=== PATIENT | male | born 1985 | race Caucasian/White ===

== ENCOUNTER 2016-11-18 13:20 | Inpatient (IN) | payer OTHER ==
--- NOTE | 2016-11-18 13:49 | PDOC ---
History of Present Illness - General History Source: Patient Exam Limitations: No Limitations - History of Present Illness Initial Comments: 11/18/16 13:46 This is a 31 yo M presenting to the ER from his PMD's office Pt states that he has noted right lower extremity swelling for the past week He has noted erythema the past week No fevers no chills Trauma to the right leg from excoriated skin No drainage No recent travel PMH: no known PSH: denies Meds: denies All: NKDA PMH: Dr Todd, [facility] GENERAL/CONSTITUTIONAL: No: fever, chills, weakness, loss of appetite. HEAD, EYES, EARS, NOSE AND THROAT: No: change in vision, ear pain, discharge, sore throat, throat swelling. CARDIOVASCULAR: No: chest pain, lightheadedness, palpitations, syncope RESPIRATORY: No: cough, shortness of breath, wheezing, hemoptysis, stridor. GASTROINTESTINAL: No: nausea, vomiting, diarrhea, abdominal cramping, rectal bleeding, constipation. GENITOURINARY: No: dysuria, hematuria, frequency, urgency, flank pain. MUSCULOSKELETAL: No: back pain, neck pain, joint pain, muscle swelling or pain SKIN: Yes: right lower extremity edema and erythema No: lesions, pallor, rash or easy bruising. NEUROLOGIC: No: headache, vertigo, paresthesias, weakness ENDOCRINE: No: unexplained weight gain or loss HEMATOLOGIC/LYMPHATIC: No: anemia, easy bleeding, swelling nodes. GENERAL: The patient is in no acute distress, obese. HEAD: Normal with no signs of trauma. EYES: PERRLA, EOMI, sclera anicteric, conjunctiva clear. ENT: Ears normal, nares patent, oropharynx clear without exudates. Moist mucous membranes. NECK: Normal range of motion, supple without lymphadenopathy, JVD, or masses. LUNGS: Breath sounds equal, clear to auscultation bilaterally. No wheezes, and no crackles. HEART:Regular rate and rhythm, normal S1 and S2 without murmur, rub or gallop. ABDOMEN: Soft, nontender, normoactive bowel sounds. No guarding, no rebound. No masses palpable. EXTREMITIES: (+) swelling RLE NEUROLOGICAL: Cranial nerves II through XII grossly intact. Normal speech. No focal neurological deficits. MUSCULOSKELETAL: Back non-tender to palpation, no CVA tenderness SKIN: (+) Diffuse RLE circumfrential erythema, multiple lower extremity lesions , 11/18/16 14:02 11/18/16 14:08 <Funmilayo Chan - Last Filed: 11/18/16 17:02> <Alfredito Lopez - Last Filed: 11/18/16 17:12> - General Chief Complaint: Edema Stated Complaint: RT LEG SWELLING, REDNESS Time Seen by Provider: 11/18/16 13:33 Past History - Psycho/Social/Smoking Cessation Hx Anxiety: No Suicidal Ideation: No Smoking History: Former smoker Have you smoked in the past 12 months: Yes Information on smoking cessation initiated: No 'Breaking Loose' booklet given: 11/18/16 Hx Alcohol Use: Yes (occasional) <Funmilayo Chan - Last Filed: 11/18/16 17:02> <Alfredito Lopez - Last Filed: 11/18/16 17:12> - Past Medical History Allergies/Adverse Reactions: Allergies Allergy/AdvReac Type Severity Reaction Status Date / Time No Known Drug Allergies Allergy Verified 11/18/16 13:25 pollen extracts Allergy Verified 11/18/16 13:25 Home Medications: Ambulatory Orders Loratadine [Claritin] 10 mg PO ASDIR PRN 11/18/16 *Physical Exam - Vital Signs Last Vital Signs Temp Pulse Resp BP Pulse Ox 97.9 F 85 18 146/88 98 11/18/16 13:20 11/18/16 13:20 11/18/16 13:20 11/18/16 13:20 11/18/16 13:20 <Funmilayo Chan - Last Filed: 11/18/16 17:02> - Vital Signs Last Vital Signs Temp Pulse Resp BP Pulse Ox 97.9 F 85 18 146/88 98 11/18/16 13:20 11/18/16 13:20 11/18/16 13:20 11/18/16 13:20 11/18/16 13:20 <Alfredito Lopez - Last Filed: 11/18/16 17:12> ED Treatment Course - LABORATORY CBC & Chemistry Diagram: 11/18/16 14:00 11/18/16 14:00 <Funmilayo Chan - Last Filed: 11/18/16 17:02> - LABORATORY CBC & Chemistry Diagram: 11/18/16 14:00 11/18/16 14:00 - ADDITIONAL ORDERS Additional order review: 11/18/16 14:00 RBC 4.65 MCV 84.4 MCHC 32.3 RDW 13.1 MPV 8.5 Neutrophils % 65.0 Lymphocytes % 21.3 Monocytes % 9.7 Eosinophils % 2.2 Basophils % 1.8 - RADIOLOGY Radiograph Interpretation: 11/18/16 15:00 US Duplex Impression: There is no evidence of deep venous thromboses in the right lower extremity. Elongated/enlarged lymph node in the right groin measuring 5.3 x 1.2 cm. Please correlate clinically for further evaluation. Reviewed and interpreted by by radiologist, Dr. Andrey Andino MD. X-ray Foot Impression: Extensive soft tissue swelling with no fracture or subcutaneous emphysema. Reviewed and interpreted by radiologist Dr. Arthur Payne MD. <Alfredito Lopez - Last Filed: 11/18/16 17:12> Medical Decision Making - Medical Decision Making 11/18/16 14:13 Will do labs Will do blood cultures Will do duplex - r/o DVT Will do x rays Will give IV abx Will place on observation 11/18/16 15:15 11/18/16 15:16 Laboratory Tests 11/18/16 11/18/16 14:00 14:00 WBC 9.3 Hgb 12.7 Hct 39.3 Plt Count 437 H Neutrophils % 65.0 Lymphocytes % 21.3 BUN 12 Creatinine 1.0 Random Glucose 90 Duplex negative for DVT Will admit to hospitalist Will give Vancomycin and Ceftriaxone Clinical Impression: Cellulitis, lymphangitis <Funmilayo Chan - Last Filed: 11/18/16 17:02> - Medical Decision Making 11/18/16 14:55 Hospitalist microblogged. 11/18/16 14:55 Hospitalist call to ER. Case discussed. Agreed to admit patient to observation. <Alfredito Lopez - Last Filed: 11/18/16 17:12> *DC/Admit/Observation/Transfer - Discharge Dispostion Admit: Yes <Funmilayo Chan - Last Filed: 11/18/16 17:02> - Attestations Scribe Attestion: 11/18/16 15:31 Documentation prepared by Alfredito Lopez, acting as biomedical manager for Funmilayo Chan MD. <Alfredito Lopez - Last Filed: 11/18/16 17:12> Diagnosis at time of Disposition: Cellulitis of leg Qualifiers: Laterality: right Qualified Code(s): L03.115 - Cellulitis of right lower limb - Discharge Dispostion Condition at time of disposition: Stable
[2016-11-18 14:18] LABS: BASOPHIL 1.8 % (0-2.0); EOSINOPHIL 2.2 % (0-4.5); MCH 27.2 pg (25.7-33.7); MCHC 32.3 g/dl (32.0-35.9); MEAN CELL VOLUME 84.4 fl (80-96); MEAN PLT VOLUME 8.5 fl (7.5-11.1); PLATELET COUNT 437 K/MM3 (134-434); RDW 13.1 % (11.9-15.9); WHITE BLOOD COUNT 9.3 K/mm3 (4.0-10.0)
[2016-11-18] MEDS ORDERED: VANCOMYCIN 1,500 MG in DEXTROSE 5%-WATER - 500 ML IVPB ONE (14:54)
[2016-11-18 15:05] LABS: ALBUMIN 2.7 g/dl (3.5-5.0); ALK PHOS 56 U/L (32-92); ANION GAP 9 (8-16); CALCIUM 8.5 mg/dl (8.4-10.2); CO2 22 mmol/L (22-28); GLUCOSE,RANDOM 90 mg/dl (74-106); SGOT/AST 22 U/L (10-42); SGPT/ALT 33 U/L (10-40); TOT PROT 6.9 g/dl (6.4-8.3)
[2016-11-18] MEDS ORDERED: CEFTRIAXONE 1 GM in DEXTROSE 5%-WATER - 50 ML IVPB ONE (15:08)
[2016-11-18] MEDS ORDERED: VANCOMYCIN 1,000 MG VIAL (RESTRICTED TO ID ONLY) ONE (15:12)
[2016-11-18] MEDS ORDERED: cefTRIAXone SODIUM 1 GM VIAL ONE (15:12)
[2016-11-18 15:15] LABS: BILIRUBIN,TOTAL 0.4 mg/dl (0.2-1.0)
[2016-11-18 18:44] VITALS: BMI 40.1
--- NOTE | 2016-11-18 20:04 | HP ---
CHIEF COMPLAINT: Swelling, Redness to RLE PCP: HISTORY OF PRESENT ILLNESS: This is a 31 y/o male with no significant past medical history. Who presents to the emergency department sent in from his PCP for swelling, redness and dried lesions to his RLE x 3-7 days. Patient reports over the last week noting swelling and redness to his right ankle which spread up to his right inner thigh. He reports treating his leg with neosporin and hydrocortisone OTC without relief. Patient reports occasional scratches from his dog, but denies any dog bite or insect bites. Patient denies fever, chills, cough, CP, AP, N/V/D , constipation, dysuria. Patient does not recall last Tetanus Vaccine ER course was notable for: (1) Dupplex RLE- neg DVT (2) Xray right foot- extensive soft tissue swelling. No fx, no subcutaneous emphysema (3) Recent Travel: None PAST MEDICAL HISTORY: None PAST SURGICAL HISTORY: Ear surgery as a child Social History: Smoking: None Alcohol: None Drugs: None Family History: Denies Allergies No Known Drug Allergies Allergy (Verified 11/18/16 13:25) pollen extracts Allergy (Verified 11/18/16 13:25) HOME MEDICATIONS: Home Medications Medication Instructions Recorded Loratadine [Claritin] 10 mg PO ASDIR PRN 11/18/16 REVIEW OF SYSTEMS CONSTITUTIONAL: Absent: fever, chills, diaphoresis, generalized weakness, malaise, loss of appetite, weight change HEENT: Absent: rhinorrhea, nasal congestion, throat pain, throat swelling, difficulty swallowing, mouth swelling, ear pain, eye pain, visual changes CARDIOVASCULAR: peripheral edema Absent: chest pain, syncope, palpitations, irregular heart rate, lightheadedness RESPIRATORY: Absent: cough, shortness of breath, dyspnea with exertion, orthopnea, wheezing, stridor, hemoptysis GASTROINTESTINAL: Absent: abdominal pain, abdominal distension, nausea, vomiting, diarrhea, constipation, melena, hematochezia GENITOURINARY: Absent: dysuria, frequency, urgency, hesitancy, hematuria, flank pain, genital pain MUSCULOSKELETAL: Absent: myalgia, arthralgia, joint swelling, back pain, neck pain SKIN: redness, scaly blister-like lesions to RLE Absent: rash, itching, pallor HEMATOLOGIC/IMMUNOLOGIC: Absent: easy bleeding, easy bruising, lymphadenopathy, frequent infections ENDOCRINE: Absent: unexplained weight gain, unexplained weight loss, heat intolerance, cold intolerance NEUROLOGIC: Absent: headache, focal weakness or paresthesias, dizziness, unsteady gait, seizure, mental status changes, bladder or bowel incontinence PSYCHIATRIC: Absent: anxiety, depression, suicidal or homicidal ideation, hallucinations. PHYSICAL EXAMINATION Vital Signs - 24 hr 11/18/16 18:35 Temperature 97.9 F Pulse Rate 84 Respiratory 18 Rate Blood Pressure 144/86 GENERAL:Obese, Awake, alert, and fully oriented, in no acute distress. HEAD: Normal with no signs of trauma. EYES: Pupils equal, round and reactive to light, extraocular movements intact, sclera anicteric, conjunctiva clear. No lid lag. EARS, NOSE, THROAT: Ears normal, nares patent, oropharynx clear without exudates. Moist mucous membranes. NECK: Normal range of motion, supple without lymphadenopathy, JVD, or masses. LUNGS: Breath sounds equal, clear to auscultation bilaterally. No wheezes, and no crackles. No accessory muscle use. HEART: Regular rate and rhythm, normal S1 and S2 without murmur, rub or gallop. ABDOMEN: Soft, obese, nontender, not distended, normoactive bowel sounds, no guarding, no rebound, no masses. No hepatomegaly or splenomegaly. MUSCULOSKELETAL: Normal range of motion at all joints. No bony deformities or tenderness. No CVA tenderness. UPPER EXTREMITIES: 2+ pulses, warm, well-perfused. No cyanosis. No clubbing. Cap refill <2 seconds. No peripheral edema. LOWER EXTREMITIES: 2+ pulses, warm, well-perfused. No calf tenderness. +2 right pitting peripheral edema. NEUROLOGICAL: Cranial nerves II-XII intact. Normal speech. Gait not observed. PSYCHIATRIC: Cooperative. Good eye contact. Appropriate mood and affect. SKIN: Warm, dry, normal turgor, no rashes. +erythematous, flaky- scabbed lesions to RLE noted. Laboratory Results - last 24 hr 11/18/16 11/18/16 14:00 14:00 WBC 9.3 RBC 4.65 Hgb 12.7 Hct 39.3 MCV 84.4 MCHC 32.3 RDW 13.1 Plt Count 437 H MPV 8.5 Neutrophils % 65.0 Lymphocytes % 21.3 Monocytes % 9.7 Eosinophils % 2.2 Basophils % 1.8 Sodium 133 L Potassium 4.1 Chloride 102 Carbon Dioxide 22 Anion Gap 9 BUN 12 Creatinine 1.0 Creat Clearance w eGFR > 60 Random Glucose 90 Calcium 8.5 Total Bilirubin 0.4 AST 22 ALT 33 Alkaline Phosphatase 56 Total Protein 6.9 Albumin 2.7 L RADIOLOGY Radiograph Interpretation: 11/18/16 15:00 US Duplex Impression: There is no evidence of deep venous thromboses in the right lower extremity. Elongated/enlarged lymph node in the right groin measuring 5.3 x 1.2 cm. Please correlate clinically for further evaluation. Reviewed and interpreted by by radiologist, Dr. Andrey Andino MD. X-ray Foot Impression: Extensive soft tissue swelling with no fracture or subcutaneous emphysema. Reviewed and interpreted by radiologist Dr. Arthur Payne MD. ASSESSMENT/PLAN: This is a 31 y/o male with no past medical history. Who presents to the ED with increased redness, swelling and multiple lesions to RLE. Placed on observation for Cellulitis of the right lower leg for further evaluation of their emergent condition. Plan: 1. Cellulitis of Right Leg - unknown etiology - Dupplex RLE- neg DVT - Blood Cultures-pending - Given Ceftriaxone, Vancomycin in ED - Will continue Ceftriaxone, Vancomcyin for MRSA coverage - Appreciate ID Consult - Repeat CBC in am - Tylenol prn 2. FEN - PO Fluids - Replete lytes prn - Regular Diet 3. DVT Prophylaxis - OOB - Consider Heparin if LOS > 48 hrs Code Status: Patient is a Full Code Visit type - Emergency Visit Emergency Visit: Yes ED Registration Date: 11/18/16 Care time: The patient presented to the Emergency Department on the above date and was hospitalized for further evaluation of their emergent condition. - New Patient This patient is new to me today: Yes Date on this admission: 11/18/16 - Critical Care Critical Care patient: No
[2016-11-18] MEDS ORDERED: ACETAMINOPHEN 325 MG TABLET (FP) PO PRN (20:14)
[2016-11-19 08:17] LABS: BASOPHIL 0.4 % (0-2.0); EOSINOPHIL 3.2 % (0-4.5); MCH 27.7 pg (25.7-33.7); MCHC 33.2 g/dl (32.0-35.9); MEAN CELL VOLUME 83.4 fl (80-96); MEAN PLT VOLUME 8.7 fl (7.5-11.1); NEUTROPHILS 64.4 % (42.8-82.8); PLATELET COUNT 393 K/MM3 (134-434); RDW 13.2 % (11.9-15.9); WHITE BLOOD COUNT 7.6 K/mm3 (4.0-10.0)
[2016-11-19 08:27] LABS: CALCIUM 8.6 mg/dl (8.4-10.2); CREATININE 0.8 mg/dl (0.6-1.3)
[2016-11-19] MEDS ORDERED: CEFTRIAXONE 1 GM in DEXTROSE 5%-WATER - 100 ML IVPB SCH (10:00)
[2016-11-19] MEDS ORDERED: VANCOMYCIN 1 GRAM (PRE-DOCKED) 250 ML IVPB ONE (10:00)
[2016-11-19] MEDS: cefTRIAXone 1 GM/50 ML BAG (PRE-DOCKED) IVPB SCH (10:22)
--- NOTE | 2016-11-19 10:24 | PN ---
Physical Exam: SUBJECTIVE: Patient seen and examined. Pt with no acute complaints on exam. Reports some pain in his ankle with ambulation but otherwise feels that his leg is improving. Believes the redness is lessened. OBJECTIVE: Vital Signs - 24 hr 3 11/18/16 11/18/16 11/18/16 13:20 18:35 20:00 Temperature 97.9 F 97.9 F 98.1 F Pulse Rate 85 84 72 Respiratory 18 18 20 Rate Blood Pressure 146/88 144/86 156/74 O2 Sat by Pulse 98 Oximetry (%) 3 11/18/16 11/19/16 20:34 05:00 Temperature 98.4 F Pulse Rate 72 Respiratory 18 18 Rate Blood Pressure 168/54 O2 Sat by Pulse Oximetry (%) GENERAL: The patient is awake, alert, and fully oriented, in no acute distress. HEAD: Normal with no signs of trauma. EYES: PERRL, extraocular movements intact, sclera anicteric, conjunctiva clear. No ptosis. ENT: Ears normal, nares patent, oropharynx clear without exudates, moist mucous membranes. NECK: Trachea midline, full range of motion, supple. LUNGS: Breath sounds equal, clear to auscultation bilaterally, no wheezes, no crackles, no accessory muscle use. HEART: Regular rate and rhythm, S1, S2 without murmur, rub or gallop. ABDOMEN: Soft, nontender, nondistended, normoactive bowel sounds, no guarding, no rebound, no hepatosplenomegaly, no masses. EXTREMITIES: 2+ pulses, warm, well-perfused, no edema LLE. RLE: + erythema from just above knee to foot. appears to be receding from drawn pen line proximally. + excoriations and open blisters to anterior jean baptiste. No purulent discharge NEUROLOGICAL: Cranial nerves II through XII grossly intact. Normal speech, gait not observed. PSYCH: Normal mood, normal affect. SKIN: Warm, dry, normal turgor, no rashes or lesions noted Laboratory Results - last 24 hr 3 11/19/16 11/19/16 08:00 08:00 WBC 7.6 RBC 4.71 Hgb 13.1 Hct 39.3 MCV 83.4 MCHC 33.2 RDW 13.2 Plt Count 393 MPV 8.7 Neutrophils % 64.4 Lymphocytes % 22.4 Monocytes % 9.6 Eosinophils % 3.2 Basophils % 0.4 Sodium 137 Potassium 4.5 Chloride 106 Carbon Dioxide 24 Anion Gap 7 L BUN 11 Creatinine 0.8 Random Glucose 100 Calcium 8.6 Active Medications 3 Generic Name Dose Route Start Last Admin Trade Name Freq PRN Reason Stop Dose Admin Acetaminophen 650 mg 11/18/16 20:14 Tylenol - PO Q6H PRN FEVER OR PAIN Ceftriaxone Sodium 1 gm 11/19/16 10:00 11/19/16 10:22 Rocephin 1gm Ivpb (Pre-Docked) IVPB 1 gm DAILY TATE Administration Vancomycin HCl 250 mls @ 250 mls/hr 11/19/16 22:00 Vancomycin (Pre-Docked) IVPB BID TATE Protocol Vancomycin HCl 250 mls @ 250 mls/hr 11/19/16 10:00 11/19/16 10:22 Vancomycin (Pre-Docked) IVPB 11/19/16 10:59 250 mls/hr ONCE ONE Administration Protocol ASSESSMENT/PLAN: 31yM with no past medical history who presented to the ED from his PCP office with RLE cellulitis. He has been admitted for same. Cellulitis RLE - seems to be improving with ceftriaxone and vanco. Will cont same. Trough level tomorrow - ID consult - encourage elevation Elevated BP - cont to monitor. If SBP remains above 150 would start antihypertensives, HCTZ, and follow BMP DVT PPX - pt fully ambulatory, will defer chemoprophylaxis for now. FEN - tolerating po - Repeat BMP in am - regular diet as tolerated Dispo: pt currently requires inpatient care for IV antibiotics. Visit type - Emergency Visit Emergency Visit: Yes ED Registration Date: 11/18/16 Care time: The patient presented to the Emergency Department on the above date and was hospitalized for further evaluation of their emergent condition. - New Patient This patient is new to me today: Yes Date on this admission: 11/19/16 - Critical Care Critical Care patient: No
--- NOTE | 2016-11-19 16:59 | PN ---
Progress Note (short form) - Note Progress Note: ID consult dictated imp/reccd cellulitis obesitiy 31 year old man admitted with RLE swelling for one week - noted increasing erythema and went to see his doctor on Monday who advised admission. he has had intermittent RLE for last 10 years- lasting less then a day, never the left leg no fevers or chills no history of abscesses was started on ceftriaxone and vancomycin with improvement of the cellulitis will adjust antibiotic doses for his weight
--- NOTE | 2016-11-19 17:29 | CONS ---
INFECTIOUS DISEASE CONSULTATION DATE OF CONSULTATION: DATE OF DICTATION: 11/19/2016 REQUESTED BY: The hospitalist service DICTATED BY: Pamella Albert MD HISTORY OF PRESENT ILLNESS: This is a 31-year-old man with history of obesity. He is a former smoker. He stopped about 5-6 years ago. He is admitted with right lower extremity swelling that has been persistent for a week. He notes that when he takes his dog walking, he frequently gets a lot of bug bites and scratches on his anterior shins on both his legs. But this time, instead of improving, the right leg got worse and persisted. He does state that in the past he has had some intermittent right lower extremity swelling, though it lasts about a day or so and goes away. But this time, all the symptoms persisted, the leg got red, it got more swollen. He finally went to see his primary care physician who advised admission. He treated his leg with Neosporin and hydrocortisone at home. He has not had any insect bites. He gets an occasional scratch from his dog, but he has had no fevers or chills. There has been no cough. He has no nausea, vomiting, diarrhea or dysuria. He had a duplex in the emergency room that was negative for DVT. He had an x-ray that showed extensive soft tissue swelling, and he was treated with ceftriaxone and vancomycin. PAST MEDICAL HISTORY: Unremarkable. SURGICAL HISTORY: Surgical history is notable for ear surgery. SOCIAL HISTORY: He just graduated. He is a former smoker. He stopped smoking in his mid-20s. He has a pet dog. He travels extensively. He recently came back at the end of October from [place]. He is currently unemployed. ALLERGIES: He has no known drug allergies. FAMILY HISTORY: Noncontributory. REVIEW OF SYSTEMS: Review of systems is most interestingly notable for these intermittent symptoms he has of his right leg. He does not that he has tried to lose weight, and he thinks he has lost a significant amount of weight recently. He is unable to quantitate, and he otherwise feels well. PHYSICAL EXAM: Vital signs: His temperature is 98. Pulse is 70. Blood pressure 163/76. Respiratory rate is 19. His oxygen saturation is 97% on room air. HEENT exam: He is normocephalic. His eyes are anicteric. His neck is supple. Lungs: Lungs are clear to auscultation. Heart: Heart is regular rate and rhythm. Abdomen: Abdomen is soft, nontender. Extremities: Extremities are notable for diffuse erythema of the right leg starting from above the foot. It starts at the ankle area where he has multiple excoriations and extends up. The markings include the inner thigh, but has resided from there. There is no evidence of any joint involvement of his knee or his ankle, and his foot appears okay as well. He has a small ulcer between the first and second toe on both his feet, which he states he got during his trip to [place]. LABS: His white count is 7.6, hemoglobin 13.1. Platelets are 393. BUN and creatinine are 11 and 0.8. His blood cultures at 24 hours are negative. SUMMARY: In summary, this is a 31-year-old man with right lower extremity cellulitis. Duplex negative for DVT, currently on vancomycin and ceftriaxone with good improvement. RECOMMENDATION: Would continue both antibiotics and adjust doses for his weight. Letha [id number]
[2016-11-19] MEDS: VANCOMYCIN 1,250 MG in DEXTROSE 5%-WATER - 250 ML IVPB SCH (21:54)
[2016-11-19] MEDS ORDERED: VANCOMYCIN 1 GRAM (PRE-DOCKED) 250 ML IVPB SCH ×2 (22:00)
[2016-11-20 09:29] LABS: BASOPHIL 1.3 % (0-2.0); EOSINOPHIL 3.1 % (0-4.5); MCH 26.8 pg (25.7-33.7); MCHC 32.1 g/dl (32.0-35.9); MEAN CELL VOLUME 83.6 fl (80-96); MEAN PLT VOLUME 8.7 fl (7.5-11.1); NEUTROPHILS 68.8 % (42.8-82.8); PLATELET COUNT 445 K/MM3 (134-434); WHITE BLOOD COUNT 7.5 K/mm3 (4.0-10.0)
[2016-11-20 09:40] LABS: CALCIUM 8.9 mg/dl (8.4-10.2); CREATININE 0.9 mg/dl (0.6-1.3)
--- NOTE | 2016-11-20 10:05 | PN ---
Physical Exam: SUBJECTIVE: Patient seen and examined Pt denies any RLE pain,fever, chills, cp, sob,palpitations, abdominal pain, N/V /D,urinary discomfort, dizziness or weakness. OBJECTIVE: Vital Signs Period Temp Pulse Resp BP Sys/Trent Pulse Ox Last 24 Hr 98 F-98.2 F 70-76 16-19 128-163/65-76 97-97 GENERAL: The patient is awake, alert, and fully oriented, in no acute distress. HEAD: Normal with no signs of trauma. EYES: PERRL, extraocular movements intact, sclera anicteric, conjunctiva clear. No ptosis. ENT: Ears normal, nares patent, oropharynx clear without exudates, moist mucous membranes. NECK: Trachea midline, full range of motion, supple. LUNGS: Breath sounds equal, clear to auscultation bilaterally, no wheezes, no crackles, no accessory muscle use. HEART: Regular rate and rhythm, S1, S2 without murmur, rub or gallop. ABDOMEN: Soft, nontender, nondistended, normoactive bowel sounds, no guarding, no rebound, no hepatosplenomegaly, no masses. EXTREMITIES: 2+ pulses, warm, well-perfused,, non-pitting edema, with excoriation, redness,with multiple open wounds but no drainage,,swelling and redness improving. NEUROLOGICAL: Cranial nerves II through XII grossly intact. Normal speech, gait not observed. PSYCH: Normal mood, normal affect. SKIN: Warm, dry, normal turgor, no rashes or lesions noted Laboratory Results - last 24 hr 11/20/16 11/20/16 09:00 09:00 WBC 7.5 RBC 4.93 Hgb 13.2 Hct 41.2 MCV 83.6 MCHC 32.1 RDW 13.0 Plt Count 445 H MPV 8.7 Neutrophils % 68.8 Lymphocytes % 19.9 Monocytes % 6.9 Eosinophils % 3.1 Basophils % 1.3 D Sodium 137 Potassium 4.3 Chloride 103 Carbon Dioxide 23 Anion Gap 11 BUN 10 Creatinine 0.9 Random Glucose 102 Calcium 8.9 Active Medications Generic Name Dose Route Start Last Admin Trade Name Freq PRN Reason Stop Dose Admin Acetaminophen 650 mg 11/18/16 20:14 Tylenol - PO Q6H PRN FEVER OR PAIN Ceftriaxone Sodium 1 gm 11/19/16 10:00 11/19/16 10:22 Rocephin 1gm Ivpb (Pre-Docked) IVPB 1 gm DAILY TATE Administration Vancomycin HCl 1,250 mg/ 250 mls @ 166.667 mls/hr 11/19/16 22:00 11/19/16 21:54 Dextrose IVPB 166.667 mls/hr BID TATE Administration Protocol ASSESSMENT/PLAN: This is a 31 year old male with no past medical history who presented to the ED from his PCP office with RLE cellulitis, admitted RLE cellulitis. *Cellulitis RLE - imaging ruled out acute fracture - US ruled out DVT - remains afebrile with no leukocytosis - will continue on Ceftriaxone and Vanco with improvement - ID following - Vanco trough level pending - encourage elevation and ambulation - BC negative *Elevated BP- now stable, no hx of HTN - will monitor BP closely * Obesity - weight reduction reinforced *DVT PPX- Lovenox SQ *FEN- tolerating PO - regular diet as tolerated Dispo: Pt requires inpatient care for IV antibiotics., will convert to inpatient. Visit type - Emergency Visit Emergency Visit: Yes ED Registration Date: 11/18/16 Care time: The patient presented to the Emergency Department on the above date and was hospitalized for further evaluation of their emergent condition. - New Patient This patient is new to me today: Yes Date on this admission: 11/20/16 - Critical Care Critical Care patient: No
[2016-11-20] MEDS: cefTRIAXone 1 GM/50 ML BAG (PRE-DOCKED) IVPB SCH (10:09)
[2016-11-20] MEDS: VANCOMYCIN 1,250 MG in DEXTROSE 5%-WATER - 250 ML IVPB SCH ×2 (10:10→21:23)
[2016-11-20] MEDS: ENOXAPARIN NA (PORCINE) 40 MG/0.4 ML DISP.SYRIN SQ SCH (11:33)
--- NOTE | 2016-11-21 07:36 | PN ---
[id number]. OBJECTIVE: patient is a 31 year old male with no past medical history. Patient was admitted from the emergency department for RLE cellulitis. . Vital Signs Period Temp Pulse Resp BP Sys/Trent Pulse Ox Last 24 Hr 97.6 F-98.6 F 69-84 16-18 124-162/55-83 97 GENERAL: The patient is awake, alert, and fully oriented, in no acute distress. HEAD: Normal with no signs of trauma. EYES: PERRL, extraocular movements intact, sclera anicteric, conjunctiva clear. No ptosis. ENT: Ears normal, nares patent, oropharynx clear without exudates, moist mucous membranes. NECK: Trachea midline, full range of motion, supple. LUNGS: Breath sounds equal, clear to auscultation bilaterally, no wheezes, no crackles, no accessory muscle use. HEART: Regular rate and rhythm, S1, S2 without murmur, rub or gallop. ABDOMEN: Soft, obese, nontender, nondistended, normoactive bowel sounds, no guarding, no rebound, no hepatosplenomegaly, no masses. EXTREMITIES: 2+ pulses, warm, well-perfused, no edema. RIGHT LOWER EXTREMITY: erythema noted to the distal lower extremity with multiple abrasions, erythema is not extending past markings NEUROLOGICAL: Cranial nerves II through XII grossly intact. Normal speech, gait not observed. PSYCH: Normal mood, normal affect. SKIN: Warm, dry, normal turgor, no rashes or lesions noted Laboratory Results - last 24 hr 11/20/16 11/20/16 09:00 09:00 WBC 7.5 RBC 4.93 Hgb 13.2 Hct 41.2 MCV 83.6 MCHC 32.1 RDW 13.0 Plt Count 445 H MPV 8.7 Neutrophils % 68.8 Lymphocytes % 19.9 Monocytes % 6.9 Eosinophils % 3.1 Basophils % 1.3 D Sodium 137 Potassium 4.3 Chloride 103 Carbon Dioxide 23 Anion Gap 11 BUN 10 Creatinine 0.9 Random Glucose 102 Calcium 8.9 Vancomycin Trough 6.233 Active Medications Generic Name Dose Route Start Last Admin Trade Name Freq PRN Reason Stop Dose Admin Acetaminophen 650 mg 11/18/16 20:14 Tylenol - PO Q6H PRN FEVER OR PAIN Ceftriaxone Sodium 1 gm 11/19/16 10:00 11/20/16 10:09 Rocephin 1gm Ivpb (Pre-Docked) IVPB 1 gm DAILY TATE Administration Enoxaparin Sodium 40 mg 11/20/16 10:15 11/20/16 11:33 Lovenox - SQ 40 mg DAILY TATE Administration Vancomycin HCl 1,250 mg/ 250 mls @ 166.667 mls/hr 11/19/16 22:00 11/20/16 21:23 Dextrose IVPB 166.667 mls/hr BID TATE Administration Protocol Microbiology 11/18/16 14:15 Blood - Peripheral Venous Blood Culture - Preliminary NO GROWTH OBTAINED AFTER 48 HOURS, INCUBATION TO CONTINUE FOR 3 DAYS. 11/18/16 14:00 Blood - Peripheral Venous Blood Culture - Preliminary NO GROWTH OBTAINED AFTER 48 HOURS, INCUBATION TO CONTINUE FOR 3 DAYS. IMAGING 11/18/16, duplex of right lower extremity, no dvt 11/18/16, xray of right foot and tib/fib, no fracture, soft tissue swelling ASSESSMENT/PLAN: 1) ID Cellulitis RLE - continue vancomycin and rocephin as per ID - blood cultures NTD - pt afebrile, no leukocytosis noted - multiple abrasion noted to distal lower extremity will order bactroban ointment 2) card - elevated b/p, will start norvasc - strict b/p monitoring F/E/N regular diet ppx lovenox oob zantac Dispo: Pt requires inpatient care for IV antibiotics. Visit type - Emergency Visit Emergency Visit: Yes ED Registration Date: 11/18/16 Care time: The patient presented to the Emergency Department on the above date and was hospitalized for further evaluation of their emergent condition. - New Patient This patient is new to me today: Yes Date on this admission: 11/21/16 - Critical Care Critical Care patient: No - Discharge Referral Referred to [facility] No
--- NOTE | 2016-11-21 09:25 | PN ---
Progress Note, Physician History of Present Illness: No c/o leg pain No fever/ chills Tolerating antibiotics Afebrile WBC WNL Blood c/s (-) - Current Medication List Current Medications: Active Medications Acetaminophen (Tylenol -) 650 mg PO Q6H PRN PRN Reason: FEVER OR PAIN Ceftriaxone Sodium (Rocephin 1gm Ivpb (Pre-Docked)) 1 gm IVPB DAILY [facility] Last Admin: 11/20/16 10:09 Dose: 1 gm Enoxaparin Sodium (Lovenox -) 40 mg SQ DAILY [facility] Last Admin: 11/20/16 11:33 Dose: 40 mg Vancomycin HCl 1,250 mg/ (Dextrose) 250 mls @ 166.667 mls/hr IVPB BID TATE PRN Reason: Protocol Last Admin: 11/20/16 21:23 Dose: 166.667 mls/hr - Objective Vital Signs: Vital Signs Temperature 97.6 F 11/21/16 06:20 Pulse Rate 77 11/21/16 06:20 Respiratory Rate 16 11/21/16 07:56 Blood Pressure 162/83 11/21/16 06:20 O2 Sat by Pulse Oximetry (%) 96 11/21/16 07:56 Constitutional: Yes: No Distress Eyes: Yes: Conjunctiva Clear Cardiovascular: Yes: Regular Rate and Rhythm, S1, S2 Respiratory: Yes: CTA Bilaterally Gastrointestinal: Yes: Normal Bowel Sounds, Soft. No: Tenderness Edema: Yes Edema: LLE: 1+, RLE: 1+ Wound/Incision: Yes: Other (receding erythema from traced-out margins + shallow- based ulcers No drainage) Labs: CBC, BMP 11/20/16 09:00 11/20/16 09:00 Assessment/Plan Cellulitis R LE- improved Continue IV Vancomycin/ ceftriaxone additional 24h Elevation
[2016-11-21] MEDS: VANCOMYCIN 1,250 MG in DEXTROSE 5%-WATER - 250 ML IVPB SCH ×2 (09:47→21:44)
[2016-11-21] MEDS: cefTRIAXone 1 GM/50 ML BAG (PRE-DOCKED) IVPB SCH (09:47)
[2016-11-21] MEDS: ENOXAPARIN NA (PORCINE) 40 MG/0.4 ML DISP.SYRIN SQ SCH (09:50)
[2016-11-21] MEDS ORDERED: PT OWN MED DRAWER 7, Y5N ONE (11:38)
[2016-11-21] MEDS: amLODIPine BESYLATE 5 MG TABLET (FP) PO SCH (11:40)
[2016-11-21] MEDS: LACTOBACILLUS ACIDOPHILUS 1 EACH TAB (FP) PO SCH (11:40)
[2016-11-21] MEDS: MUPIROCIN 2% TOPICAL OINTMENT 22 GM TUBE TP SCH ×2 (11:41→21:45)
[2016-11-21] MEDS ORDERED: REFRIGERATED ANITBIOTICS ONE (21:13)
[2016-11-21 22:41] VITALS: PULSE 79
[2016-11-22 05:31] VITALS: BP 155/81; TEMP 98.6
[2016-11-22 08:48] LABS: ALK PHOS 58 U/L (32-92); ANION GAP 9 (8-16); BILIRUBIN,TOTAL 0.4 mg/dl (0.2-1.0); CALCIUM 9.2 mg/dl (8.4-10.2); CO2 25 mmol/L (22-28); CREATININE 0.9 mg/dl (0.6-1.3); GLUCOSE,RANDOM 99 mg/dl (74-106); MAGNESIUM 2.3 mg/dL (1.8-2.4); SGOT/AST 26 U/L (10-42); SGPT/ALT 34 U/L (10-40); TOT PROT 7.8 g/dl (6.4-8.3)
[2016-11-22 09:09] LABS: BASOPHIL 0.5 % (0-2.0); EOSINOPHIL 5.8 % (0-4.5); MCH 27.6 pg (25.7-33.7); MCHC 33.1 g/dl (32.0-35.9); MEAN CELL VOLUME 83.3 fl (80-96); MEAN PLT VOLUME 8.5 fl (7.5-11.1); NEUTROPHILS 58.7 % (42.8-82.8); PLATELET COUNT 446 K/MM3 (134-434); RDW 12.8 % (11.9-15.9); WHITE BLOOD COUNT 5.6 K/mm3 (4.0-10.0)
[2016-11-22] MEDS ORDERED: PT OWN MED DRAWER 7, Y5N ONE (09:32)
[2016-11-22] MEDS: cefTRIAXone 1 GM/50 ML BAG (PRE-DOCKED) IVPB SCH (09:53)
[2016-11-22] MEDS: ENOXAPARIN NA (PORCINE) 40 MG/0.4 ML DISP.SYRIN SQ SCH (09:53)
[2016-11-22] MEDS: amLODIPine BESYLATE 5 MG TABLET (FP) PO SCH (09:53)
[2016-11-22] MEDS: LACTOBACILLUS ACIDOPHILUS 1 EACH TAB (FP) PO SCH (09:54)
[2016-11-22] MEDS: MUPIROCIN 2% TOPICAL OINTMENT 22 GM TUBE TP SCH (09:54)
--- NOTE | 2016-11-22 10:28 | PN ---
Progress Note, Physician History of Present Illness: No c/o leg pain No fever/ chills BC no growth - Current Medication List Current Medications: Active Medications Acetaminophen (Tylenol -) 650 mg PO Q6H PRN PRN Reason: FEVER OR PAIN Amlodipine Besylate (Norvasc -) 5 mg PO DAILY [facility] Last Admin: 11/22/16 09:53 Dose: 5 mg Ceftriaxone Sodium (Rocephin 1gm Ivpb (Pre-Docked)) 1 gm IVPB DAILY [facility] Last Admin: 11/22/16 09:53 Dose: 1 gm Enoxaparin Sodium (Lovenox -) 40 mg SQ DAILY [facility] Last Admin: 11/22/16 09:53 Dose: 40 mg Vancomycin HCl 1,250 mg/ (Dextrose) 250 mls @ 166.667 mls/hr IVPB BID [facility] PRN Reason: Protocol Last Admin: 11/21/16 21:44 Dose: 166.667 mls/hr Lactobacillus Acidophilus (Bacid -) 1 tab PO DAILY [facility] Last Admin: 11/22/16 09:54 Dose: 1 tab Mupirocin (Bactroban 2% Ointment -) 1 applic TP BID [facility] Last Admin: 11/22/16 09:54 Dose: 1 applic - Objective Vital Signs: Vital Signs Temperature 98.6 F 11/22/16 04:00 Pulse Rate 79 11/22/16 04:00 Respiratory Rate 20 11/22/16 04:00 Blood Pressure 155/81 11/22/16 04:00 O2 Sat by Pulse Oximetry (%) 98 11/22/16 05:30 Constitutional: Yes: No Distress, Obese Eyes: Yes: Conjunctiva Clear Cardiovascular: Yes: Regular Rate and Rhythm, S1, S2 Respiratory: Yes: CTA Bilaterally Gastrointestinal: Yes: Normal Bowel Sounds, Soft. No: Tenderness Extremities: Yes: Other (erythema/ warmth R LE nearly all resolved + superficial ulcers; no drainage) Labs: CBC, BMP 11/22/16 07:50 11/22/16 07:50 Assessment/Plan Cellulitis R LE- improved Discontinue IV Vancomycin/ ceftriaxone Switch to Bactrim DS po bid + keflex 500mg qid x 7days OK for discharge Elevation
[2016-11-22] MEDS: VANCOMYCIN 1,250 MG in DEXTROSE 5%-WATER - 250 ML IVPB SCH (11:00)
--- NOTE | 2016-11-22 11:56 | DS ---
Physical Exam: SUBJECTIVE: Patient seen and examined, patient reports feeling better, reports an improvement in pain to the right lower extremity, denies any fever, chest pain or shortness of breath. OBJECTIVE: patient is a 31 y/o male with no significant past medical history. Who presents to the emergency department sent in from his PCP for swelling, redness and dried lesions to his RLE x 3-7 days. Patient reports over the last week noting swelling and redness to his right ankle which spread up to his right inner thigh. He reports treating his leg with neosporin and hydrocortisone OTC without relief. Patient reports occasional scratches from his dog, but denies any dog bite or insect bites. Patient denies fever, chills, cough, CP, AP, N/V/D, constipation, dysuria. Patient does not recall last Tetanus Vaccine ER course was notable for: (1) Dupplex RLE- neg DVT (2) Xray right foot- extensive soft tissue swelling. No fx, no subcutaneous emphysema Vital Signs Period Temp Pulse Resp BP Sys/Trent Pulse Ox Last 24 Hr 97.7 F-98.6 F 79-98 18-20 155-167/75-81 93-98 PHYSICAL EXAM GENERAL: The patient is awake, alert, and fully oriented, in no acute distress. HEAD: Normal with no signs of trauma. EYES: PERRL, extraocular movements intact, sclera anicteric, conjunctiva clear. No ptosis. ENT: Ears normal, nares patent, oropharynx clear without exudates, moist mucous membranes. NECK: Trachea midline, full range of motion, supple. LUNGS: Breath sounds equal, clear to auscultation bilaterally, no wheezes, no crackles, no accessory muscle use. HEART: Regular rate and rhythm, S1, S2 without murmur, rub or gallop. ABDOMEN: Soft, obese, nontender, nondistended, normoactive bowel sounds, no guarding, no rebound, no hepatosplenomegaly, no masses. EXTREMITIES: 2+ pulses, warm, well-perfused, no edema. RIGHT LOWER EXTREMITY: erythema noted to the distal lower extremity with multiple abrasions, erythema is not extending past markings, much improved NEUROLOGICAL: Cranial nerves II through XII grossly intact. Normal speech, gait not observed. PSYCH: Normal mood, normal affect. SKIN: Warm, dry, normal turgor, no rashes or lesions noted LABS Laboratory Results - last 24 hr 11/22/16 11/22/16 07:50 07:50 WBC 5.6 RBC 5.13 Hgb 14.1 Hct 42.7 MCV 83.3 MCHC 33.1 RDW 12.8 Plt Count 446 H MPV 8.5 Neutrophils % 58.7 Lymphocytes % 24.7 D Monocytes % 10.3 H Eosinophils % 5.8 H D Basophils % 0.5 Sodium 136 Potassium 4.6 Chloride 102 Carbon Dioxide 25 Anion Gap 9 BUN 12 Creatinine 0.9 Creat Clearance w eGFR > 60 Random Glucose 99 Calcium 9.2 Phosphorus 4.0 Magnesium 2.3 Total Bilirubin 0.4 AST 26 ALT 34 Alkaline Phosphatase 58 Total Protein 7.8 Albumin 3.0 L Microbiology 11/18/16 14:15 Blood - Peripheral Venous Blood Culture - Preliminary NO GROWTH OBTAINED AFTER 96 HOURS, INCUBATION TO CONTINUE FOR 1 DAYS. 11/18/16 14:00 Blood - Peripheral Venous Blood Culture - Preliminary NO GROWTH OBTAINED AFTER 96 HOURS, INCUBATION TO CONTINUE FOR 1 DAYS. IMAGING 11/18/16, duplex of right lower extremity, no dvt 11/18/16, xray of right foot and tib/fib, no fracture, soft tissue swelling HOSPITAL COURSE: Patient was admitted for cellulitis of the right lower extremity. He was placed on vancomycin and rocephin upon admission to the hospital. Rocephin and vancomycin was continued for the 3 days of hospitalization. Blood cultures are negative to date. He remained afebrile, no leukocytosis noted. Multiple abrasion noted to distal lower extremity and bactroban ointment was ordered. Patient was noted to have elevated b/p. norvasc was started and patient tolerated medication well. Date of Admission:11/18/16 Date of Discharge: 11/22/16 Minutes to complete discharge: 45 Discharge Summary Reason For Visit: CELLULITIS Current Active Problems Cellulitis of leg (Acute) Condition: Improved - Instructions Diet, Activity, Other Instructions: rest, resume regular low sodium diet elevate extremity frequently throughout the day please take antibiotics as prescribed, please take antibiotics with food continue taking norvasc as prescribed Return to the emergency department immediately with ANY new, persistent or worsening symptoms. You MUST call and follow up with your doctor tomorrow. Please make sure your doctor reviews the results of your hospital stay. Referrals: Cornelius Hdez MD [Staff Physician] - Disposition: HOME - Home Medications Comprehensive Discharge Medication List: Ambulatory Orders Loratadine [Claritin] 10 mg PO ASDIR PRN 11/18/16 This patient is new to me today: No Emergency Visit: Yes ED Registration Date: 11/18/16 Care time: The patient presented to the Emergency Department on the above date and was hospitalized for further evaluation of their emergent condition. Critical Care patient: No - Discharge Referral Referred to [facility] No
== END 2016-11-22 13:03 | disposition home or self-care (01) | DRG 603 ==
LOC: FER 13:20 → FM/S 17:13 → OBSVTOIN 17:13
PROVIDERS: ADMIT Internal Medicine; ATTEND Nurse Practitioner Family
DX: L03.115 Cellulitis of right lower limb (principal); Z68.41 Body mass index [BMI] 40.0-44.9, adult; E66.8 Other obesity; Z71.3 Dietary counseling and surveillance; Z87.891 Personal history of nicotine dependence
CPT/HCPCS: 36415; 73590-TC-RT; 73630-TC-RT; 80048; 80053; 83735; 84100; 85025; 87040; 93971-TC; 99285-25; G0480

== ENCOUNTER 2018-06-10 12:20 | Inpatient (IN) | payer OTHER ==
[~2018-06-10 12:20] MED LIST: VANCOMYCIN 1,500 MG in DEXTROSE 5%-WATER - 500 ML IVPB ONE
--- NOTE | 2018-06-10 13:11 | PDOC ---
History of Present Illness - General Chief Complaint: Redness To Affected Area Stated Complaint: BOTH LEG REDNESS Time Seen by Provider: 06/10/18 12:26 History Source: Patient Exam Limitations: No Limitations - History of Present Illness Initial Comments: 06/10/18 13:04 CHIEF COMPLAINT: Right leg redness and pain getting worse for a week. HISTORY OF PRESENT ILLNESS: 32-year-old man with a history of morbid obesity and prior cellulitis of the lower extremities presents complaining of chronic swelling of his legs now with progressive redness and swelling with weeping from the right leg. Symptoms have been present for a while, but got much worse over the last week. He denies fever or chills. He denies chest pain, cough, hemoptysis, or shortness of breath. He has been sleeping in an upright position for the last 9 months due to inability to get comfortable and sleep when lying supine. He denies shortness of breath when lying supine. He denies history of DVT, prior ultrasound of the legs was negative. REVIEW OF SYSTEMS: GENERAL/CONSTITUTIONAL: No fever or chills. No weakness. No weight change. + Patient states he has weighed greater than 350, maxing out the scale for as long as he can remember. HEAD, EYES, EARS, NOSE AND THROAT: No change in vision. No ear pain or discharge. No sore throat. + Prior history of pinning of the ears for cosmetic reasons. CARDIOVASCULAR: No chest pain or shortness of breath. RESPIRATORY: No cough, wheezing, or hemoptysis. GASTROINTESTINAL: No nausea, vomiting, diarrhea or constipation. No rectal bleeding. GENITOURINARY: No dysuria, frequency, or change in urination. MUSCULOSKELETAL: No joint or muscle swelling or pain. No neck or back pain. SKIN AND BREASTS: No rash or easy bruising. + History of chronic leg swelling. NEUROLOGIC: No headache, vertigo, loss of consciousness, or loss of sensation. PSYCHIATRIC: No depression or anxiety. ENDOCRINE: No increased thirst. Long-standing morbid obesity. No history of thyroid disorder. HEMATOLOGIC/LYMPHATIC: No anemia, easy bleeding, or history of blood clots. ALLERGIC/IMMUNOLOGIC: No hives or skin allergy. No latex allergy. Past History - Past Medical History Allergies/Adverse Reactions: Allergies Allergy/AdvReac Type Severity Reaction Status Date / Time No Known Drug Allergies Allergy Verified 06/10/18 12:21 pollen extracts Allergy Verified 06/10/18 12:21 Home Medications: Ambulatory Orders Loratadine [Claritin] 10 mg PO PRN PRN 06/10/18 Oxycodone HCl/Acetaminophen [Percocet 5-325 mg Tablet] 1 tab PO Q6H PRN #10 tablet MDD 4 06/10/18 Anemia: No Asthma: No Cancer: No Cardiac Disorders: No CVA: No COPD: No CHF: No Dementia: No Diabetes: No GI Disorders: No Disorders: No HTN: No (denies hypertension despite elevated blood pressures in prior records) Hypercholesterolemia: No Liver Disease: No Seizures: No Thyroid Disease: No Other medical history: obesity, cellulitis, - Surgical History Abdominal Surgery: No Appendectomy: No Cardiac Surgery: No Cholecystectomy: No Lung Surgery: No Neurologic Surgery: No Orthopedic Surgery: No Other Surgical History: 06/10/18 13:07 Cosmetic pinning of the ears as a child - Suicide/Smoking/Psychosocial Hx Smoking History: Former smoker Have you smoked in the past 12 months: No Information on smoking cessation initiated: No 'Breaking Loose' booklet given: 11/18/16 Hx Alcohol Use: Yes (beer per day) Drug/Substance Use Hx: No Substance Use Type: Alcohol Hx Substance Use Treatment: No *Physical Exam - Vital Signs Last Vital Signs Temp Pulse Resp BP Pulse Ox 97.7 F 97 H 22 183/93 98 06/10/18 12:21 06/10/18 12:21 06/10/18 12:21 06/10/18 12:21 06/10/18 12:21 - Physical Exam Comments: 06/10/18 13:08 GENERAL: The patient is awake, alert, and fully oriented, in no acute distress. No dyspnea at rest. + Severe morbid obesity HEAD: Normal with no signs of trauma. EYES: Pupils equal, round and reactive to light, extraocular movements intact, sclera anicteric, conjunctiva clear. ENT: Ears normal, nares patent, oropharynx clear without exudates. Moist mucous membranes. NECK: Obese. Normal range of motion, supple without lymphadenopathy, JVD, or masses. LUNGS: Breath sounds equal, clear to auscultation bilaterally, but distant due to obesity. No wheezes, and no crackles. HEART: Regular rate and rhythm, normal S1 and S2 without murmur, rub or gallop. ABDOMEN: Severe abdominal obesity. Large, heavy pannus in the lower abdomen. Soft, nontender, normoactive bowel sounds. No guarding, no rebound. No masses. EXTREMITIES: Chronic venous stasis changes bilaterally, right greater than left. Chronic granulomatous scarring of the right lower extremity greater than the left lower extremity. Positive erythema right greater than left. Positive serous weeping of the right lower extremity, malodorous. No clubbing or cyanosis. No cords or erythema. Positive posterior calf tenderness of the right lower leg.] NEUROLOGICAL: Cranial nerves II through XII grossly intact. Normal speech, able to ambulate. PSYCH: Normal mood, normal affect. SKIN: Upper extremities: Warm, Dry, normal turgor, no rashes or lesions noted. Lower extremities as noted above. Heart Score/ECG Review - ECG Impressions Comment:: 06/10/18 13:12 Twelve-lead EKG shows sinus rhythm at a rate of 100 bpm. The axis is normal. The MT and QT intervals are normal. The QRS is borderline widened with an incomplete right bundle branch block. There are no acute ST elevations or depressions. There are no significant T-wave changes. There is no old EKG available for comparison. ED Treatment Course - LABORATORY CBC & Chemistry Diagram: 06/10/18 15:09 06/10/18 15:09 - RADIOLOGY Radiology Studies Ordered: Category Date Time Status CHEST PA & LAT [RAD] Stat Radiology 06/10/18 13:01 Ordered DUPLEX VASCUL US-2LEGS [US] Stat Ultrasound 06/10/18 13:02 Ordered Medical Decision Making - Medical Decision Making 06/10/18 13:11 32-year-old man with history of severe morbid obesity and prior episodes of cellulitis. Patient presents with progressive redness, swelling, and weeping of the right lower extremity greater than the left lower extremity. On examination there are signs of chronic venous stasis changes with granulomatous scar tissue, more severe in the right leg. There are also signs of acute infection with skin redness and weeping of serous tissue. Impression: Chronic lower extremity venous stasis secondary to morbid obesity. Acute cellulitis of the right lower extremity. Plan: Workup with labs, chest x-ray, EKG, blood cultures, duplex ultrasound to rule out DVT. Patient to be started on vancomycin and ceftriaxone, for admission to the hospital for further treatment of acute cellulitis. *DC/Admit/Observation/Transfer Diagnosis at time of Disposition: Cellulitis of right lower leg - Discharge Dispostion Condition at time of disposition: Stable Decision to Admit order: Yes Decision to Admit order Date/Time: 06/10/18 16:[address] Kam, will admit to [facility]. - Prescriptions Prescriptions: Oxycodone HCl/Acetaminophen [Percocet 5-325 mg Tablet] 1 tab PO Q6H PRN #10 tablet MDD 4 PRN Reason: Severe Pain - Referrals - Patient Instructions - Post Discharge Activity
[2018-06-10] MEDS ORDERED: CEFTRIAXONE 1,000 MG in DEXTROSE 5%-WATER - 50 ML IVPB ONE (13:32)
[2018-06-10] MEDS ORDERED: VANCOMYCIN 1,500 MG in DEXTROSE 5%-WATER - 500 ML IVPB ONE (13:33)
[2018-06-10 15:34] LABS: BASO % 0.6 % (0-2.0); EOS % 5.8 % (0-4.5); LYMPH % 23.7 % (8-40); MCH 26.4 pg (25.7-33.7); MCHC 31.8 g/dl (32.0-35.9); MEAN CELL VOLUME 82.8 fl (80-96); MEAN PLT VOLUME 9.3 fl (7.5-11.1); MONO % 12.5 % (3.8-10.2); NEUT % 57.4 % (42.8-82.8); PLATELET COUNT 347 K/MM3 (134-434); RBC 4.95 M/mm3 (4.00-5.60); RDW 14.9 % (11.9-15.9); WHITE BLOOD COUNT 8.2 K/mm3 (4.0-10.8)
[2018-06-10] MEDS ORDERED: VANCOMYCIN 500 MG VIAL (RESTRICTED TO ID ONLY) ONE (15:51)
[2018-06-10] MEDS ORDERED: VANCOMYCIN 1,000 MG VIAL (RESTRICTED TO ID ONLY) ONE (15:52)
[2018-06-10] MEDS ORDERED: cefTRIAXone SODIUM 1 GM VIAL ONE (15:52)
[2018-06-10 15:57] LABS: ALBUMIN 3.6 g/dl (3.5-5.0); ALK PHOS 70 U/L (32-92); ANION GAP 9 MMOL/L (8-16); BILIRUBIN,TOTAL 0.6 mg/dl (0.2-1.0); BLOOD UREA NITROGEN 15 mg/dl (7-18); CALCIUM 8.8 mg/dl (8.4-10.2); CHLORIDE 103 mmol/L (98-107); CO2 23 mmol/L (22-28); GLUCOSE,RANDOM 95 mg/dl (74-106); SGOT/AST 25 U/L (10-42); SGPT/ALT 28 U/L (10-40); SODIUM 135 mmol/L (136-145); TOT PROT 7.5 g/dl (6.4-8.3)
[2018-06-10 16:12] LABS: ACTIVATED PTT 29.6 SECONDS (25.2-36.5)
[2018-06-10 16:16] LABS: INR 1.15 (0.82-1.09); PROTHROMBIN TIME (PATIENT) 12.8 SEC (10.2-13.0)
[2018-06-10 17:49] VITALS: BMI 58.8
--- NOTE | 2018-06-10 20:42 | HP ---
CHIEF COMPLAINT: B/L LE swelling PCP: Dr Richards ([facility]) [phone] HISTORY OF PRESENT ILLNESS: This is a 32 year old morbidly obese male with a past medical history of cellulitis who presented to the ED with a one month history of increased swelling of B/L LE R>L. He noticed bumps on his right leg and weeping of the skin as well. He reports redness off and on since his previous episode of cellulitis 11/2016. He denies pain unless he lays with pressure on his calves. ER course was notable for: (1) WBC 8.2 (2) US limited, no DVT visualized (3) given ceftriaxone and vanco Recent Travel: pt denies PAST MEDICAL HISTORY: cellulitis, morbid obesity PAST SURGICAL HISTORY: cosmetic ear surgery as a child Social History: Smoking: quit 10-15 years ago Alcohol: occ drink with dinner Drugs: pt denies Family History: father age 69, complications related to morbid obesity mother alive and well Allergies No Known Drug Allergies Allergy (Verified 06/10/18 12:21) pollen extracts Allergy (Verified 06/10/18 12:21) HOME MEDICATIONS: 3 Medication Instructions Recorded Loratadine [Claritin] 10 mg PO PRN PRN 06/10/18 Oxycodone HCl/Acetaminophen 1 tab PO Q6H PRN #10 tablet MDD 4 06/10/18 [Percocet 5-325 mg Tablet] REVIEW OF SYSTEMS CONSTITUTIONAL: Absent: fever, chills, diaphoresis, generalized weakness, malaise, loss of appetite, weight change HEENT: Absent: rhinorrhea, nasal congestion, throat pain, throat swelling, difficulty swallowing, mouth swelling, ear pain, eye pain, visual changes CARDIOVASCULAR: Present: peripheral edema Absent: chest pain, syncope, palpitations, irregular heart rate, lightheadedness RESPIRATORY: Absent: cough, shortness of breath, dyspnea with exertion, orthopnea, wheezing, stridor, hemoptysis GASTROINTESTINAL: Absent: abdominal pain, abdominal distension, nausea, vomiting, diarrhea, constipation, melena, hematochezia GENITOURINARY: Absent: dysuria, frequency, urgency, hesitancy, hematuria, flank pain, genital pain MUSCULOSKELETAL: Absent: myalgia, arthralgia, joint swelling, back pain, neck pain SKIN: Present: erythema, bumps on B/L LE R>L Absent: rash, itching, pallor HEMATOLOGIC/IMMUNOLOGIC: Absent: easy bleeding, easy bruising, lymphadenopathy, frequent infections ENDOCRINE: Absent: unexplained weight gain, unexplained weight loss, heat intolerance, cold intolerance NEUROLOGIC: Absent: headache, focal weakness or paresthesias, dizziness, unsteady gait, seizure, mental status changes, bladder or bowel incontinence PSYCHIATRIC: Absent: anxiety, depression, suicidal or homicidal ideation, hallucinations. PHYSICAL EXAMINATION Vital Signs - 24 hr 3 06/10/18 06/10/18 06/10/18 12:21 17:34 17:37 Temperature 97.7 F 97.9 F 997.5 F H Pulse Rate 97 H 98 H 98 H Respiratory 22 20 18 Rate Blood Pressure 183/93 175/78 175/78 O2 Sat by Pulse 98 98 Oximetry (%) GENERAL: Awake, alert, and fully oriented, in no acute distress. HEAD: Normal with no signs of trauma. EYES: Pupils equal, round and reactive to light, extraocular movements intact, sclera anicteric, conjunctiva clear. No lid lag. EARS, NOSE, THROAT: Ears normal, nares patent, oropharynx clear without exudates. Moist mucous membranes. NECK: Normal range of motion, supple without lymphadenopathy, JVD, or masses. LUNGS: Breath sounds equal, clear to auscultation bilaterally. No wheezes, and no crackles. No accessory muscle use. HEART: Regular rate and rhythm, normal S1 and S2 without murmur, rub or gallop. ABDOMEN: Soft, nontender, not distended, normoactive bowel sounds, no guarding, no rebound, no masses. No hepatomegaly or splenomegaly. MUSCULOSKELETAL: Normal range of motion at all joints. No bony deformities or tenderness. No CVA tenderness. UPPER EXTREMITIES: 2+ pulses, warm, well-perfused. No cyanosis. No clubbing. No peripheral edema. LOWER EXTREMITIES: 2+ pulses, warm, well-perfused. No calf tenderness. 4+ peripheral edema right, 3+ left. + chronic venous stasis skin changes including hypertrophic skin and granulomatous changes. + weeping noted. Mild erythema. NEUROLOGICAL: Cranial nerves II-XII intact. Normal speech. Normal gait. PSYCHIATRIC: Cooperative. Good eye contact. Appropriate mood and affect. SKIN: Warm, dry, normal turgor, no rashes or lesions noted, normal capillary refill. Laboratory Results - last 24 hr 3 06/10/18 06/10/18 06/10/18 15:09 15:09 15:09 WBC 8.2 RBC 4.95 Hgb 13.0 Hct 41.0 MCV 82.8 MCH 26.4 MCHC 31.8 L RDW 14.9 D Plt Count 347 D MPV 9.3 Absolute Neuts (auto) 4.8 Neutrophils % 57.4 Lymphocytes % 23.7 Monocytes % 12.5 H Eosinophils % 5.8 H Basophils % 0.6 PT with INR 12.8 INR 1.15 PTT (Actin FS) 29.6 Sodium 135 L Potassium 4.0 Chloride 103 Carbon Dioxide 23 Anion Gap 9 BUN 15 Creatinine 1.0 Creat Clearance w eGFR > 60 Random Glucose 95 Calcium 8.8 Total Bilirubin 0.6 AST 25 ALT 28 Alkaline Phosphatase 70 Total Protein 7.5 Albumin 3.6 ECG Normal sinus rhythm vent rate 100, QTC [address] No acute ST/T wave changes Radiology Reports Vascular US, B/L LE Impression: Limited examination, as described above. Nonvisualization of the right and left posterior tibial vein, no definite visualization of the left deep femoral vein and color Doppler flow only seen in the right popliteal vein without compression views obtained. Otherwise, there is no evidence of deep venous thrombosis in visualized portion of the right and left lower extremity deep venous system. Correlate clinically and close follow-up lower extremity duplex ultrasound would be helpful for further evaluation. Reported By: Andrey Andino MD 06/10/18 1528 Chest PA/Lat Impression: Prominent central markings. No sign of infiltrate or peripheral failure Reported By: Jesus Stephenson MD 06/10/18 1338 ASSESSMENT/PLAN: 32yM with PMH morbid obesity and cellulitis presented to the ED with B/L LE edema and erythema. Cellulitis superimposed on preexisting lymphedema - cont ceftriaxone and vancomycin - ID consult - will need lymphedema specialist upon DC - consider vasc surgery consult - advised elevation, pt reports pain with same DVT PPX - lovenox SC FEN - tolerating po fluids - BMP in am - regular diet as tolerated Dispo: pt currently requires further observation for management of his emergent condition Visit type - Emergency Visit Emergency Visit: Yes ED Registration Date: 06/10/18 Care time: The patient presented to the Emergency Department on the above date and was hospitalized for further evaluation of their emergent condition. - New Patient This patient is new to me today: Yes Date on this admission: 06/10/18 - Critical Care Critical Care patient: No Hospitalist Screening - Colonoscopy Questionnaire Colonoscopy Questionnaire: Colonoscopy Questionnaire - Patient: 50 - 75 years old and never had a screening colonoscopy: No History of colon or rectal polyps, or CA: No History of IBD, Crohn's disease or UC: No History of abdominal radiation therapy as a child: No - Relative: 1 with colon or rectal CA, or polyps at age 60 or younger: No Colon or rectal CA diagnosed at age 45 or younger: No Multiple relatives with colon or rectal CA: No - Outcome: Screening Result: Negative Screen
[2018-06-11] MEDS ORDERED: VANCOMYCIN 1,500 MG in DEXTROSE 5%-WATER - 500 ML IVPB ONE (03:00)
[2018-06-11 07:23] LABS: PH,URINE 5.5 (4.5-8); URINE APPEARANCE Clear; URINE BILIRUBIN 1+ (NEGATIVE); URINE COLOR Yellow; URINE GLUCOSE (UA) Negative (NEGATIVE); URINE KETONE Negative (NEGATIVE); URINE LEUK ESTERASE Negative (NEGATIVE); URINE NITRITE Negative (NEGATIVE)
[2018-06-11 07:47] LABS: URINE PROTEIN 1+ (NEGATIVE)
[2018-06-11 08:30] LABS: BASO % 0.4 % (0-2.0); EOS % 4.5 % (0-4.5); HEMATOCRIT 36.9 % (35.4-49); HEMOGLOBIN 12.2 GM/dl (11.7-16.9); MCH 26.9 pg (25.7-33.7); MCHC 33.2 g/dl (32.0-35.9); MEAN CELL VOLUME 81.1 fl (80-96); MEAN PLT VOLUME 9.3 fl (7.5-11.1); MONO % 12.5 % (3.8-10.2); NEUT % 63.6 % (42.8-82.8); PLATELET COUNT 298 K/MM3 (134-434); RBC 4.55 M/mm3 (4.00-5.60); WHITE BLOOD COUNT 7.8 K/mm3 (4.0-10.8)
[2018-06-11 08:32] LABS: EPI CELLS MODERATE /HPF; URINE BACTERIA FEW /hpf (NEGATIVE); URINE RBC 0-2 /hpf (0-3)
[2018-06-11 08:33] LABS: URINE MUCUS MODERATE
[2018-06-11 08:52] LABS: ANION GAP 7 MMOL/L (8-16); BLOOD UREA NITROGEN 11 mg/dl (7-18); CALCIUM 8.7 mg/dl (8.4-10.2); CHLORIDE 104 mmol/L (98-107); CO2 23 mmol/L (22-28); CREATININE 0.9 mg/dl (0.6-1.3); GLUCOSE,RANDOM 94 mg/dl (74-106); POTASSIUM 3.9 mmol/L (3.5-5.1); SODIUM 134 mmol/L (136-145)
[2018-06-11] MEDS ORDERED: CEFTRIAXONE 1 GM in DEXTROSE 5%-WATER - 50 ML IVPB SCH (10:00)
[2018-06-11] MEDS: CEFTRIAXONE 1 GM/50 ML BAG IVPB SCH (10:31)
[2018-06-11] MEDS: ENOXAPARIN NA (PORCINE) 40 MG/0.4 ML DISP.SYRIN SQ SCH (10:31)
--- NOTE | 2018-06-11 11:20 | EKG ---
Test Reason : Blood Pressure : / mmHG Vent. Rate : 100 BPM Atrial Rate : 100 BPM P-R Int : 170 ms QRS Dur : 114 ms QT Int : 366 ms P-R-T Axes : 040 056 015 degrees QTc Int : 472 ms NORMAL SINUS RHYTHM INCOMPLETE RIGHT BUNDLE BRANCH BLOCK BORDERLINE ECG NO PREVIOUS ECGS AVAILABLE Confirmed by KEITH CHERRY MD ([id number]) on 06/11/2018 11:20:22 AM Referred By: Saundra Rey Confirmed By:KEITH CHERRY MD
--- NOTE | 2018-06-11 13:04 | PN ---
Physical Exam: SUBJECTIVE: Patient seen and examined, sitting in bedside recliner, reports feeling well, denies any tactile fevers OBJECTIVE: patient is a 32 year old morbidly obese male with a past medical history of cellulitis, patient was admitted from the emergency department for cellulitis of bilateral lower extremities Vital Signs Period Temp Pulse Resp BP Sys/Trent Pulse Ox Last 24 Hr 97.9 F-997.5 F 86-98 18-20 158-178/72-88 97-100 GENERAL: The patient is awake, alert, and fully oriented, in no acute distress. HEAD: Normal with no signs of trauma. EYES: PERRL, extraocular movements intact, sclera anicteric, conjunctiva clear. No ptosis. ENT: Ears normal, nares patent, oropharynx clear without exudates, moist mucous membranes. NECK: Trachea midline, full range of motion, supple. LUNGS: Breath sounds equal, clear to auscultation bilaterally, no wheezes, no crackles, no accessory muscle use. HEART: Regular rate and rhythm, S1, S2 without murmur, rub or gallop. ABDOMEN: Soft, nontender, nondistended, normoactive bowel sounds, no guarding, no rebound, no hepatosplenomegaly, no masses. EXTREMITIES: 2+ pulses, warm, well-perfused, +4 Pitting edema bilaterally to lower extremity weeping skin, chronic venous stasis changes, billateral erythema NEUROLOGICAL: Cranial nerves II through XII grossly intact. Normal speech, gait not observed. PSYCH: Normal mood, normal affect. SKIN: Warm, dry, normal turgor, no rashes or lesions noted Laboratory Results - last 24 hr 06/10/18 06/10/18 06/10/18 15:09 15:09 15:09 WBC 8.2 RBC 4.95 Hgb 13.0 Hct 41.0 MCV 82.8 MCH 26.4 MCHC 31.8 L RDW 14.9 D Plt Count 347 D MPV 9.3 Absolute Neuts (auto) 4.8 Neutrophils % 57.4 Lymphocytes % 23.7 Monocytes % 12.5 H Eosinophils % 5.8 H Basophils % 0.6 PT with INR 12.8 INR 1.15 PTT (Actin FS) 29.6 Sodium 135 L Potassium 4.0 Chloride 103 Carbon Dioxide 23 Anion Gap 9 BUN 15 Creatinine 1.0 Creat Clearance w eGFR > 60 Random Glucose 95 Calcium 8.8 Total Bilirubin 0.6 AST 25 ALT 28 Alkaline Phosphatase 70 Total Protein 7.5 Albumin 3.6 Urine Color Urine Appearance Urine pH Ur Specific [place] Urine Protein Urine Glucose (UA) Urine Ketones Urine Blood Urine Nitrite Urine Bilirubin Urine Urobilinogen Ur Leukocyte Esterase Urine RBC Urine WBC Ur Epithelial Cells Urine Bacteria Urine Mucus 06/11/18 06/11/18 06/11/18 07:04 08:00 08:00 WBC 7.8 RBC 4.55 Hgb 12.2 Hct 36.9 MCV 81.1 MCH 26.9 MCHC 33.2 RDW 15.0 Plt Count 298 MPV 9.3 Absolute Neuts (auto) 5.0 Neutrophils % 63.6 Lymphocytes % 19.0 Monocytes % 12.5 H Eosinophils % 4.5 Basophils % 0.4 PT with INR INR PTT (Actin FS) Sodium 134 L Potassium 3.9 Chloride 104 Carbon Dioxide 23 Anion Gap 7 L BUN 11 Creatinine 0.9 Creat Clearance w eGFR > 60 Random Glucose 94 Calcium 8.7 Total Bilirubin AST ALT Alkaline Phosphatase Total Protein Albumin Urine Color Yellow Urine Appearance Clear Urine pH 5.5 Ur Specific [place] >= 1.030 H Urine Protein 1+ H Urine Glucose (UA) Negative Urine Ketones Negative Urine Blood Trace-intact H Urine Nitrite Negative Urine Bilirubin 1+ H Urine Urobilinogen 1.0 Ur Leukocyte Esterase Negative Urine RBC 0-2 Urine WBC 5-10 Ur Epithelial Cells Moderate Urine Bacteria Few Urine Mucus Moderate Active Medications Generic Name Dose Route Start Last Admin Trade Name Freq PRN Reason Stop Dose Admin Enoxaparin Sodium 40 mg 06/11/18 10:00 06/11/18 10:31 Lovenox - SQ 40 mg DAILY TATE Administration Ceftriaxone Sodium 1 gm in 50 mls @ 100 mls/hr 06/11/18 10:00 06/11/18 10:31 Rocephin 1gm Ivpb (Pre-Docked) IVPB 100 mls/hr DAILY TATE Administration Protocol Vancomycin HCl 1,250 mg/ 250 mls @ 166.667 mls/hr 06/11/18 15:00 Dextrose IVPB Q12H TATE Protocol ECG Normal sinus rhythm vent rate 100, QTC 472 incomplete RBBB No acute ST/T wave changes Radiology Reports Vascular US, B/L LE Impression: Limited examination, as described above. Nonvisualization of the right and left posterior tibial vein, no definite visualization of the left deep femoral vein and color Doppler flow only seen in the right popliteal vein without compression views obtained. Otherwise, there is no evidence of deep venous thrombosis in visualized portion of the right and left lower extremity deep venous system. Correlate clinically and close follow-up lower extremity duplex ultrasound would be helpful for further evaluation. Reported By: Andrey Andino MD 06/10/18 1528 Chest PA/Lat Impression: Prominent central markings. No sign of infiltrate or peripheral failure Reported By: Jesus Stephenson MD 06/10/18 1338 ASSESSMENT/PLAN: 1) ID Cellulitis - superimposed on preexisting lymphedema - cont ceftriaxone and vancomycin, appreciate ID input for abx approval - will need lymphedema specialist upon DC - neurovascular check and billateral lower extremity elevation DVT PPX - lovenox SC FEN - tolerating po fluids - BMP in am - regular diet as tolerated Dispo: pt currently requires further observation for management of his emergent condition Visit type - Emergency Visit Emergency Visit: Yes ED Registration Date: 06/12/18 Care time: The patient presented to the Emergency Department on the above date and was hospitalized for further evaluation of their emergent condition. - New Patient This patient is new to me today: No - Critical Care Critical Care patient: No - Discharge Referral Referred to [facility] Med P.C.: No
[2018-06-11] MEDS: VANCOMYCIN 1,250 MG in DEXTROSE 5%-WATER - 250 ML IVPB SCH (14:40)
--- NOTE | 2018-06-11 18:16 | PN ---
Progress Note (short form) - Note Progress Note: ID Consult dictated Recurrent LE cellulitis Chronic LE lympedema Morbid obesity Pending c/s empiric vancomycin/ ceftriaxone
[2018-06-12] MEDS: VANCOMYCIN 1,250 MG in DEXTROSE 5%-WATER - 250 ML IVPB SCH ×2 (03:30→15:42)
[2018-06-12 09:07] LABS: BASO % 0.5 % (0-2.0); EOS % 6.3 % (0-4.5); HEMATOCRIT 37.5 % (35.4-49); HEMOGLOBIN 12.2 GM/dl (11.7-16.9); LYMPH % 21.8 % (8-40); MCH 26.4 pg (25.7-33.7); MCHC 32.4 g/dl (32.0-35.9); MEAN CELL VOLUME 81.4 fl (80-96); MEAN PLT VOLUME 9.2 fl (7.5-11.1); MONO % 6.8 % (3.8-10.2); NEUT % 64.6 % (42.8-82.8); PLATELET COUNT 317 K/MM3 (134-434); RBC 4.61 M/mm3 (4.00-5.60); RDW 14.7 % (11.9-15.9); WHITE BLOOD COUNT 6.6 K/mm3 (4.0-10.8)
--- NOTE | 2018-06-12 09:11 | PN ---
Progress Note, Physician History of Present Illness: OOB in chair C/O episodic pains R LE No fever/ chills Tolerating antibiotics without adverse rxn - Current Medication List Current Medications: Active Medications Enoxaparin Sodium (Lovenox -) 40 mg SQ DAILY TATE Last Admin: 06/11/18 10:31 Dose: 40 mg Ceftriaxone Sodium (Rocephin 1gm Ivpb (Pre-Docked)) 1 gm in 50 mls @ 100 mls/ hr IVPB DAILY TATE; Protocol Last Admin: 06/11/18 10:31 Dose: 100 mls/hr Vancomycin HCl 1,250 mg/ (Dextrose) 250 mls @ 166.667 mls/hr IVPB Q12H TATE; Protocol Last Admin: 06/12/18 03:30 Dose: 166.667 mls/hr Multi-Ingredient Lotion (Eucerin (Large Jar) -) 1 applic TP BID PRN PRN Reason: DRY SKIN - Objective Vital Signs: Vital Signs Temperature 98.3 F 06/12/18 06:00 Pulse Rate 85 06/12/18 06:00 Respiratory Rate 18 06/12/18 06:00 Blood Pressure 169/75 06/12/18 06:00 O2 Sat by Pulse Oximetry (%) 100 06/12/18 06:00 Constitutional: Yes: No Distress, Obese Eyes: Yes: Conjunctiva Clear Cardiovascular: Yes: Regular Rate and Rhythm, S1, S2 Respiratory: Yes: CTA Bilaterally Gastrointestinal: Yes: Normal Bowel Sounds, Soft. No: Tenderness Extremities: Yes: Other (+ LE lymphedema decreased erythema/ weepage R LE) Labs: INR, PTT INR 1.15 (0.82-1.09) 06/10/18 15:09 Assessment/Plan Recurrent cellulitis LE Chronic lymphedema Morbid obesity Await c/s Continue empiric ceftriaxone/ vancomycin Check vancomycin level
[2018-06-12 09:16] LABS: ALBUMIN 3.5 g/dl (3.5-5.0); ALK PHOS 63 U/L (32-92); ANION GAP 8 MMOL/L (8-16); BILIRUBIN,TOTAL 0.8 mg/dl (0.2-1.0); BLOOD UREA NITROGEN 10 mg/dl (7-18); CHLORIDE 103 mmol/L (98-107); CO2 26 mmol/L (22-28); CREATININE 0.9 mg/dl (0.6-1.3); GLUCOSE,RANDOM 118 mg/dl (74-106); MAGNESIUM 2.2 mg/dL (1.8-2.4); PHOSPHOROUS 3.1 mg/dl (2.5-4.6); POTASSIUM 3.8 mmol/L (3.5-5.1); SGOT/AST 19 U/L (10-42); SGPT/ALT 23 U/L (10-40); SODIUM 137 mmol/L (136-145); TOT PROT 7.5 g/dl (6.4-8.3)
[2018-06-12] MEDS: CEFTRIAXONE 1 GM/50 ML BAG IVPB SCH (09:40)
[2018-06-12] MEDS: ENOXAPARIN NA (PORCINE) 40 MG/0.4 ML DISP.SYRIN SQ SCH (09:40)
--- NOTE | 2018-06-12 11:11 | CONS ---
INFECTIOUS DISEASE CONSULTATION DATE OF CONSULTATION: DATE OF DICTATION: 06/12/2018 Patient is a 32-year-old male who is evaluated for recurrent lower extremity cellulitis. The patient was admitted to the hospital on March 10, 2018. He presented to the emergency room with complaints of worsening right lower extremity erythema and pain for 1 week. He has a history of morbid obesity and chronic lymphedema of the lower extremities. He had been hospitalized in 2017 with lower extremity cellulitis. Now has progressive redness, swelling, and weepage from the right leg. Symptoms had been present for a while but got worse over the past 1 week. He denies any associated fever or chills. He denies any traumatic injury. No insect or animal bites or scratches. ALLERGIES: No known allergies. MEDICATIONS AT HOME: Include Claritin and Percocet. Cultures were obtained, and he was empirically treated with ceftriaxone and vancomycin. A Doppler exam was done, and it was limited. No definite visualization of the left deep femoral vein was noted. Otherwise, no evidence of DVT in the visualized portion of the right and left lower extremities. LABORATORY DATA: White count is 7.8, hematocrit 36.9, platelet count 296. BUN 10, creatinine 0.9. Urinalysis: White cells 5-10. Blood cultures are pending. PHYSICAL EXAMINATION: General: He is awake and alert, out of bed to chair. Vital Signs: Temperature 97.6; blood pressure 160/85; pulse 84, regular; respirations 20 per minute. HEENT: Sclerae are anicteric. Heart: Sounds S1, S2. Lungs: Clear. Abdomen: Obese, soft, nontender. Lower Extremities: Bilateral lower extremity lymphedema. There are shallow-based ulcers present on the right lower extremity with serous weepage. There is patchy erythema and warmth involving the right lower extremity, to a lesser degree in the left lower extremity. No lymphangitic streaking. IMPRESSION: 1. Recurrent right lower extremity cellulitis. 2. Chronic lymphedema of the lower extremities bilaterally. 3. Morbid obesity. 4. History of tobacco use. Pending cultures, empiric antibiotic coverage with ceftriaxone and vancomycin. Local wound care, elevation, analgesics. Will follow. Thank you for the kind referral. ZULEMA PEARSON M.D. [id number]
--- NOTE | 2018-06-12 12:39 | PN ---
Physical Exam: SUBJECTIVE: Patient seen and examined, Reports pain to lower extremities is improved denies a chest pain or shortness of breath blood pressure noted to be elevated 170/72, Patient denies any headache or blurred vision OBJECTIVE: patient is a 32 year old morbidly obese male with a past medical history of cellulitis, patient was admitted from the emergency department for cellulitis of bilateral lower extremities Vital Signs Period Temp Pulse Resp BP Sys/Trent Pulse Ox, Last 24 Hr 97.6 F-98.7 F 78-94 18-20 152-170/72-86 99-100 GENERAL: The patient is awake, alert, and fully oriented, in no acute distress. HEAD: Normal with no signs of trauma. EYES: PERRL, extraocular movements intact, sclera anicteric, conjunctiva clear. No ptosis. ENT: Ears normal, nares patent, oropharynx clear without exudates, moist mucous membranes. NECK: Trachea midline, full range of motion, supple. LUNGS: Breath sounds equal, clear to auscultation bilaterally, no wheezes, no crackles, no accessory muscle use. HEART: Regular rate and rhythm, S1, S2 without murmur, rub or gallop. ABDOMEN: Soft, nontender, nondistended, normoactive bowel sounds, no guarding, no rebound, no hepatosplenomegaly, no masses. EXTREMITIES: 2+ pulses, warm, well-perfused, +4 Pitting edema bilaterally to lower extremity weeping skin, chronic venous stasis changes, bilateral erythema Is improving NEUROLOGICAL: Cranial nerves II through XII grossly intact. Normal speech, gait not observed. PSYCH: Normal mood, normal affect. SKIN: Warm, dry, normal turgor, no rashes or lesions noted Laboratory Results - last 24 hr 06/12/18 06/12/18 06/12/18 02:32 08:30 08:30 WBC 6.6 RBC 4.61 Hgb 12.2 Hct 37.5 MCV 81.4 MCH 26.4 MCHC 32.4 RDW 14.7 Plt Count 317 MPV 9.2 Absolute Neuts (auto) 4.4 Neutrophils % 64.6 Lymphocytes % 21.8 Monocytes % 6.8 Eosinophils % 6.3 H Basophils % 0.5 Sodium 137 Potassium 3.8 Chloride 103 Carbon Dioxide 26 Anion Gap 8 BUN 10 Creatinine 0.9 Creat Clearance w eGFR > 60 Random Glucose 118 H D Hemoglobin A1c % Calcium 9.0 Phosphorus 3.1 D Magnesium 2.2 Total Bilirubin 0.8 AST 19 D ALT 23 Alkaline Phosphatase 63 Total Protein 7.5 Albumin 3.5 TSH 3.28 Free T4 Vancomycin Pre-Dose 5.47 06/12/18 06/12/18 08:30 08:30 WBC RBC Hgb Hct MCV MCH MCHC RDW Plt Count MPV Absolute Neuts (auto) Neutrophils % Lymphocytes % Monocytes % Eosinophils % Basophils % Sodium Potassium Chloride Carbon Dioxide Anion Gap BUN Creatinine Creat Clearance w eGFR Random Glucose Hemoglobin A1c % 5.8 Calcium Phosphorus Magnesium Total Bilirubin AST ALT Alkaline Phosphatase Total Protein Albumin TSH Free T4 1.11 Vancomycin Pre-Dose Active Medications Generic Name Dose Route Start Last Admin Trade Name Freq PRN Reason Stop Dose Admin Enoxaparin Sodium 40 mg 06/11/18 10:00 06/12/18 09:40 Lovenox - SQ 40 mg DAILY TATE Administration Ceftriaxone Sodium 1 gm in 50 mls @ 100 mls/hr 06/11/18 10:00 06/12/18 09:40 Rocephin 1gm Ivpb (Pre-Docked) IVPB 100 mls/hr DAILY TATE Administration Protocol Vancomycin HCl 1,250 mg/ 250 mls @ 166.667 mls/hr 06/11/18 15:00 06/12/18 03: 30 Dextrose IVPB 166.667 mls/hr Q12H TATE Administration Protocol Multi-Ingredient Lotion 1 applic 06/11/18 13:10 Eucerin (Large Jar) - TP BID PRN DRY SKIN Microbiology 06/10/18 15:25 Blood - Peripheral Venous Blood Culture - Preliminary NO GROWTH OBTAINED AFTER 24 HOURS, INCUBATION TO CONTINUE FOR 4 DAYS. 06/10/18 15:09 Blood - Peripheral Venous Blood Culture - Preliminary NO GROWTH OBTAINED AFTER 24 HOURS, INCUBATION TO CONTINUE FOR 4 DAYS. ECG Normal sinus rhythm vent rate 100, QTC 472 incomplete RBBB No acute ST/T wave changes Radiology Reports Vascular US, B/L LE Impression: Limited examination, as described above. Nonvisualization of the right and left posterior tibial vein, no definite visualization of the left deep femoral vein and color Doppler flow only seen in the right popliteal vein without compression views obtained. Otherwise, there is no evidence of deep venous thrombosis in visualized portion of the right and left lower extremity deep venous system. Correlate clinically and close follow-up lower extremity duplex ultrasound would be helpful for further evaluation. Reported By: Andrey Andino MD 06/10/18 1528 Chest PA/Lat Impression: Prominent central markings. No sign of infiltrate or peripheral failure Reported By: Jesus Stephenson MD 06/10/18 1338 ASSESSMENT/PLAN: 1) ID Cellulitis - superimposed on preexisting lymphedema - cont ceftriaxone and vancomycin, appreciate ID input for abx approval - will need lymphedema specialist upon DC - neurovascular check and billateral lower extremity elevation 2) Cardiovascular Hypertension -She does have elevated blood pressure, patient denies any past history of elevated blood pressure will start lisinopril, close monitoring every 4 hours DVT PPX - lovenox SC FEN - tolerating po fluids - BMP in am - regular diet as tolerated Dispo: pt currently requires further observation for management of his emergent condition Visit type - Emergency Visit Emergency Visit: Yes ED Registration Date: 06/12/18 Care time: The patient presented to the Emergency Department on the above date and was hospitalized for further evaluation of their emergent condition. - New Patient This patient is new to me today: No - Critical Care Critical Care patient: No - Discharge Referral Referred to [facility] Med P.C.: No
[2018-06-12] MEDS: LISINOPRIL 5 MG TABLET (FP) PO SCH (14:35)
[2018-06-12] MEDS: FAMOTIDINE 20 MG TABLET PO SCH (21:19)
[2018-06-13] MEDS ORDERED: PT OWN MED DRAWER 7, Y5N ONE ×2 (02:02→19:44)
[2018-06-13] MEDS: VANCOMYCIN 1,250 MG in DEXTROSE 5%-WATER - 250 ML IVPB SCH (02:08)
[2018-06-13 09:22] LABS: BASO % 0.8 % (0-2.0); EOS % 6.4 % (0-4.5); HEMATOCRIT 38.5 % (35.4-49); HEMOGLOBIN 12.5 GM/dl (11.7-16.9); MCH 26.3 pg (25.7-33.7); MCHC 32.3 g/dl (32.0-35.9); MEAN CELL VOLUME 81.4 fl (80-96); MEAN PLT VOLUME 8.9 fl (7.5-11.1); MONO % 8.5 % (3.8-10.2); NEUT % 60.3 % (42.8-82.8); PLATELET COUNT 338 K/MM3 (134-434); RBC 4.73 M/mm3 (4.00-5.60); WHITE BLOOD COUNT 5.5 K/mm3 (4.0-10.8)
[2018-06-13 09:44] LABS: ANION GAP 7 MMOL/L (8-16); BLOOD UREA NITROGEN 9 mg/dl (7-18); CHLORIDE 104 mmol/L (98-107); CO2 26 mmol/L (22-28); CREATININE 0.9 mg/dl (0.6-1.3); GLUCOSE,RANDOM 117 mg/dl (74-106); MAGNESIUM 2.4 mg/dL (1.8-2.4); PHOSPHOROUS 3.4 mg/dl (2.5-4.6); POTASSIUM 3.8 mmol/L (3.5-5.1); SODIUM 137 mmol/L (136-145)
--- NOTE | 2018-06-13 09:50 | PN ---
Progress Note, Physician History of Present Illness: OOB in chair C/O episodic pains R LE, improved No fever/ chills Tolerating antibiotics without adverse rxn Vanco level noted - Current Medication List Current Medications: Active Medications Enoxaparin Sodium (Lovenox -) 40 mg SQ DAILY [facility] Last Admin: 06/12/18 09:40 Dose: 40 mg Famotidine (Pepcid -) 20 mg PO BID [facility] Last Admin: 06/12/18 21:19 Dose: 20 mg Ceftriaxone Sodium (Rocephin 1gm Ivpb (Pre-Docked)) 1 gm in 50 mls @ 100 mls/ hr IVPB DAILY [facility]; Protocol Last Admin: 06/12/18 09:40 Dose: 100 mls/hr Vancomycin HCl 1,250 mg/ (Dextrose) 250 mls @ 166.667 mls/hr IVPB Q12H [facility]; Protocol Last Admin: 06/13/18 02:08 Dose: 166.667 mls/hr Lactobacillus Acidophilus (Bacid -) 1 tab PO DAILY [facility] Lisinopril (Prinivil) 5 mg PO DAILY [facility] Last Admin: 06/12/18 14:35 Dose: 5 mg Multi-Ingredient Lotion (Eucerin (Large Jar) -) 1 applic TP BID PRN PRN Reason: DRY SKIN - Objective Vital Signs: Vital Signs Temperature 98.2 F 06/13/18 05:51 Pulse Rate 80 06/13/18 05:51 Respiratory Rate 18 06/13/18 05:51 Blood Pressure 188/82 06/13/18 05:51 O2 Sat by Pulse Oximetry (%) 100 06/13/18 05:51 Constitutional: Yes: No Distress, Obese Cardiovascular: Yes: Regular Rate and Rhythm, S1, S2 Respiratory: Yes: CTA Bilaterally Gastrointestinal: Yes: Normal Bowel Sounds, Soft, Abdomen, Obese. No: Tenderness Extremities: Yes: Other (decreased erythema R LE, decreased weepage) Labs: CBC, BMP 06/13/18 09:14 INR, PTT INR 1.15 (0.82-1.09) 06/10/18 15:09 Assessment/Plan Recurrent cellulitis LE Chronic lymphedema Morbid obesity Continue empiric ceftriaxone/ vancomycin Increase vancomycin 1500mg q12h
[2018-06-13] MEDS: ENOXAPARIN NA (PORCINE) 40 MG/0.4 ML DISP.SYRIN SQ SCH (10:23)
[2018-06-13] MEDS: LISINOPRIL 5 MG TABLET (FP) PO SCH (10:23)
[2018-06-13] MEDS: LACTOBACILLUS ACIDOPHILUS 1 TABLET PO SCH (10:23)
[2018-06-13] MEDS: FAMOTIDINE 20 MG TABLET PO SCH ×2 (10:23→21:05)
[2018-06-13] MEDS: CEFTRIAXONE 1 GM/50 ML BAG IVPB SCH (10:26)
[2018-06-13] MEDS: VANCOMYCIN 1,500 MG in DEXTROSE 5%-WATER - 500 ML IVPB SCH ×2 (11:55→22:19)
[2018-06-13] MEDS ORDERED: LISINOPRIL 5 MG TABLET (FP) PO SCH (14:08)
--- NOTE | 2018-06-13 14:08 | PN ---
Physical Exam: SUBJECTIVE: Patient seen and examined, sitting in bedside recliner reports pain to bilateral lower extremitis is improved, denies any tactile fevers OBJECTIVE:patient is a 32 year old morbidly obese male with a past medical history of cellulitis, patient was admitted from the emergency department for cellulitis of bilateral lower extremities Vital Signs Period Temp Pulse Resp BP Sys/Trent Pulse Ox Last 24 Hr 98.1 F-99.2 F 76-90 17-18 165-188/68-82 98-100 GENERAL: The patient is awake, alert, and fully oriented, in no acute distress. HEAD: Normal with no signs of trauma. EYES: PERRL, extraocular movements intact, sclera anicteric, conjunctiva clear. No ptosis. ENT: Ears normal, nares patent, oropharynx clear without exudates, moist mucous membranes. NECK: Trachea midline, full range of motion, supple. LUNGS: Breath sounds equal, clear to auscultation bilaterally, no wheezes, no crackles, no accessory muscle use. HEART: Regular rate and rhythm, S1, S2 without murmur, rub or gallop. ABDOMEN: Soft, nontender, nondistended, normoactive bowel sounds, no guarding, no rebound, no hepatosplenomegaly, no masses. EXTREMITIES: 2+ pulses, warm, well-perfused, +4 Pitting edema bilaterally to lower extremity weeping skin improving, chronic venous stasis changes, bilateral erythema Is improving NEUROLOGICAL: Cranial nerves II through XII grossly intact. Normal speech, gait not observed. PSYCH: Normal mood, normal affect. SKIN: Warm, dry, normal turgor, no rashes or lesions noted Laboratory Results - last 24 hr 06/12/18 06/13/18 06/13/18 12:58 09:14 09:14 WBC 5.5 RBC 4.73 Hgb 12.5 Hct 38.5 MCV 81.4 MCH 26.3 MCHC 32.3 RDW 15.0 Plt Count 338 MPV 8.9 Absolute Neuts (auto) 3.3 Neutrophils % 60.3 Lymphocytes % 24.0 Monocytes % 8.5 Eosinophils % 6.4 H Basophils % 0.8 Sodium 137 Potassium 3.8 Chloride 104 Carbon Dioxide 26 Anion Gap 7 L BUN 9 Creatinine 0.9 Creat Clearance w eGFR > 60 Random Glucose 117 H Calcium 9.0 Phosphorus 3.4 Magnesium 2.4 Vancomycin Pre-Dose 6.93 D Active Medications Generic Name Dose Route Start Last Admin Trade Name Freq PRN Reason Stop Dose Admin Enoxaparin Sodium 40 mg 06/11/18 10:00 06/13/18 10:23 Lovenox - SQ 40 mg DAILY [facility] Administration Famotidine 20 mg 06/12/18 22:00 06/13/18 10:23 Pepcid - PO 20 mg BID [facility]ATE Administration Ceftriaxone Sodium 1 gm in 50 mls @ 100 mls/hr 06/11/18 10:00 06/13/18 10:26 Rocephin 1gm Ivpb (Pre-Docked) IVPB 100 mls/hr DAILY [facility] Administration Protocol Vancomycin HCl 1,500 mg/ 500 mls @ 250 mls/hr 06/13/18 11:00 06/13/18 11:55 Dextrose IVPB 250 mls/hr Q12H [facility] Administration Protocol Lactobacillus Acidophilus 1 tab 06/13/18 10:00 06/13/18 10:23 Bacid - PO 1 tab DAILY [facility] Administration Lisinopril 5 mg 06/12/18 13:30 06/13/18 10:23 Prinivil PO 5 mg DAILY [facility] Administration Multi-Ingredient Lotion 1 applic 06/11/18 13:10 Eucerin (Large Jar) - TP BID PRN DRY SKIN Microbiology 06/10/18 15:25 Blood - Peripheral Venous Blood Culture - Preliminary NO GROWTH OBTAINED AFTER 48 HOURS, INCUBATION TO CONTINUE FOR 3 DAYS. 06/10/18 15:09 Blood - Peripheral Venous Blood Culture - Preliminary NO GROWTH OBTAINED AFTER 48 HOURS, INCUBATION TO CONTINUE FOR 3 DAYS. ECG Normal sinus rhythm vent rate 100, QTC [address] No acute ST/T wave changes Radiology Reports Vascular US, B/L LE Impression: Limited examination, as described above. Nonvisualization of the right and left posterior tibial vein, no definite visualization of the left deep femoral vein and color Doppler flow only seen in the right popliteal vein without compression views obtained. Otherwise, there is no evidence of deep venous thrombosis in visualized portion of the right and left lower extremity deep venous system. Correlate clinically and close follow-up lower extremity duplex ultrasound would be helpful for further evaluation. Reported By: Andrey Andino MD 06/10/18 1528 Chest PA/Lat Impression: Prominent central markings. No sign of infiltrate or peripheral failure Reported By: Jesus Stephenson MD 06/10/18 9211 ASSESSMENT/PLAN: 1) ID Cellulitis - superimposed on preexisting lymphedema - cont ceftriaxone and vancomycin - ID consulted and following - will need lymphedema specialist upon DC - neurovascular check and billateral lower extremity elevation 2) Cardiovascular Hypertension - b/p remains elevated blood pressure, increase lisinopril to 10mg, close monitoring every 4 hours DVT PPX - lovenox SC FEN - tolerating po fluids - BMP in am - regular diet as tolerated Dispo: pt currently requires further observation for management of his emergent condition Visit type - Emergency Visit Emergency Visit: Yes ED Registration Date: 06/12/18 Care time: The patient presented to the Emergency Department on the above date and was hospitalized for further evaluation of their emergent condition. - New Patient This patient is new to me today: No - Critical Care Critical Care patient: No - Discharge Referral Referred to [facility] Med P.C.: No
[2018-06-13] MEDS ORDERED: LISINOPRIL 5 MG TABLET (FP) PO ONE (14:30)
[2018-06-14] MEDS: VANCOMYCIN 1,500 MG in DEXTROSE 5%-WATER - 500 ML IVPB SCH ×2 (00:23→12:00)
--- NOTE | 2018-06-14 08:42 | PN ---
Physical Exam: SUBJECTIVE: Patient seen and examined, reports improvement to lower extremity pain, denies any fever OBJECTIVE: patient is a 32 year old morbidly obese male with a past medical history of cellulitis, patient was admitted from the emergency department for cellulitis of bilateral lower extremities Vital Signs Period Temp Pulse Resp BP Sys/Trent Pulse Ox Last 24 Hr 98.1 F-99.2 F 81-90 17-19 155-175/69-81 98-100 GENERAL: The patient is awake, alert, and fully oriented, in no acute distress. HEAD: Normal with no signs of trauma. EYES: PERRL, extraocular movements intact, sclera anicteric, conjunctiva clear. No ptosis. ENT: Ears normal, nares patent, oropharynx clear without exudates, moist mucous membranes. NECK: Trachea midline, full range of motion, supple. LUNGS: Breath sounds equal, clear to auscultation bilaterally, no wheezes, no crackles, no accessory muscle use. HEART: Regular rate and rhythm, S1, S2 without murmur, rub or gallop. ABDOMEN: Soft, nontender, nondistended, normoactive bowel sounds, no guarding, no rebound, no hepatosplenomegaly, no masses. EXTREMITIES: 2+ pulses, warm, well-perfused, +4 Pitting edema bilaterally to lower extremity weeping skin improving, chronic venous stasis changes, bilateral erythema Is improving NEUROLOGICAL: Cranial nerves II through XII grossly intact. Normal speech, gait not observed. PSYCH: Normal mood, normal affect. SKIN: Warm, dry, normal turgor, no rashes or lesions noted Laboratory Results - last 24 hr 06/13/18 06/13/18 09:14 09:14 WBC 5.5 RBC 4.73 Hgb 12.5 Hct 38.5 MCV 81.4 MCH 26.3 MCHC 32.3 RDW 15.0 Plt Count 338 MPV 8.9 Absolute Neuts (auto) 3.3 Neutrophils % 60.3 Lymphocytes % 24.0 Monocytes % 8.5 Eosinophils % 6.4 H Basophils % 0.8 Sodium 137 Potassium 3.8 Chloride 104 Carbon Dioxide 26 Anion Gap 7 L BUN 9 Creatinine 0.9 Creat Clearance w eGFR > 60 Random Glucose 117 H Calcium 9.0 Phosphorus 3.4 Magnesium 2.4 Active Medications Generic Name Dose Route Start Last Admin Trade Name Freq PRN Reason Stop Dose Admin Enoxaparin Sodium 40 mg 06/11/18 10:00 06/13/18 10:23 Lovenox - SQ 40 mg DAILY [facility] Administration Famotidine 20 mg 06/12/18 22:00 06/13/18 21:05 Pepcid - PO 20 mg BID [facility] Administration Ceftriaxone Sodium 1 gm in 50 mls @ 100 mls/hr 06/11/18 10:00 06/13/18 10:26 Rocephin 1gm Ivpb (Pre-Docked) IVPB 100 mls/hr DAILY [facility] Administration Protocol Vancomycin HCl 1,500 mg/ 500 mls @ 250 mls/hr 06/13/18 11:00 06/13/18 22:19 Dextrose IVPB 250 mls/hr Q12H [facility] Administration Protocol Lactobacillus Acidophilus 1 tab 06/13/18 10:00 06/13/18 10:23 Bacid - PO 1 tab DAILY [facility] Administration Lisinopril 10 mg 06/14/18 10:00 Prinivil PO DAILY [facility] Multi-Ingredient Lotion 1 applic 06/11/18 13:10 Eucerin (Large Jar) - TP BID PRN DRY SKIN Microbiology 06/10/18 15:25 Blood - Peripheral Venous Blood Culture - Preliminary NO GROWTH OBTAINED AFTER 72 HOURS, INCUBATION TO CONTINUE FOR 2 DAYS. 06/10/18 15:09 Blood - Peripheral Venous Blood Culture - Preliminary NO GROWTH OBTAINED AFTER 72 HOURS, INCUBATION TO CONTINUE FOR 2 DAYS. ECG Normal sinus rhythm vent rate 100, QTC 472 incomplete RBBB No acute ST/T wave changes Radiology Reports Vascular US, B/L LE Impression: Limited examination, as described above. Nonvisualization of the right and left posterior tibial vein, no definite visualization of the left deep femoral vein and color Doppler flow only seen in the right popliteal vein without compression views obtained. Otherwise, there is no evidence of deep venous thrombosis in visualized portion of the right and left lower extremity deep venous system. Correlate clinically and close follow-up lower extremity duplex ultrasound would be helpful for further evaluation. Reported By: Andrey Andino MD 06/10/18 1528 Chest PA/Lat Impression: Prominent central markings. No sign of infiltrate or peripheral failure Reported By: Jesus Stephenson MD 06/10/18 1338 ASSESSMENT/PLAN: 1) ID Cellulitis superimposed on preexisting lymphedema - cont ceftriaxone and vancomycin (9/10 -) - ID consulted and following - will need lymphedema specialist upon DC - continue neurovascular checks and billateral lower extremity elevation 2) Cardiovascular Hypertension - b/p remains elevated blood pressure, increase lisinopril to 20mg, close monitoring every 4 hours DVT PPX - lovenox SC FEN - tolerating po fluids - BMP in am - regular diet as tolerated Dispo: pt currently requires further observation for management of his emergent condition Visit type - Emergency Visit Emergency Visit: Yes ED Registration Date: 06/12/18 Care time: The patient presented to the Emergency Department on the above date and was hospitalized for further evaluation of their emergent condition. - New Patient This patient is new to me today: No - Critical Care Critical Care patient: No - Discharge Referral Referred to [facility] Med P.C.: No
[2018-06-14] MEDS: MINERAL OIL/PETROLAT/WATER TOPICAL CREAM 454 GM JAR TP PRN (10:00)
[2018-06-14] MEDS ORDERED: LISINOPRIL 10 MG TABLET (FP) PO SCH (10:00)
[2018-06-14] MEDS: ENOXAPARIN NA (PORCINE) 40 MG/0.4 ML DISP.SYRIN SQ SCH (10:21)
[2018-06-14] MEDS: LACTOBACILLUS ACIDOPHILUS 1 TABLET PO SCH (10:21)
[2018-06-14] MEDS: FAMOTIDINE 20 MG TABLET PO SCH ×2 (10:21→21:34)
[2018-06-14] MEDS: CEFTRIAXONE 1 GM/50 ML BAG IVPB SCH (10:21)
[2018-06-14 10:59] LABS: ANION GAP 9 MMOL/L (8-16); BLOOD UREA NITROGEN 10 mg/dl (7-18); CALCIUM 9.4 mg/dl (8.4-10.2); CHLORIDE 100 mmol/L (98-107); CO2 26 mmol/L (22-28); CREATININE 0.9 mg/dl (0.6-1.3); GLUCOSE,RANDOM 101 mg/dl (74-106); MAGNESIUM 2.3 mg/dL (1.8-2.4); PHOSPHOROUS 3.8 mg/dl (2.5-4.6); SODIUM 135 mmol/L (136-145)
[2018-06-14 11:00] LABS: BASO % 0.5 % (0-2.0); EOS % 4.8 % (0-4.5); HEMATOCRIT 40.9 % (35.4-49); HEMOGLOBIN 13.3 GM/dl (11.7-16.9); LYMPH % 19.4 % (8-40); MCH 26.5 pg (25.7-33.7); MCHC 32.5 g/dl (32.0-35.9); MEAN CELL VOLUME 81.3 fl (80-96); MEAN PLT VOLUME 9.3 fl (7.5-11.1); MONO % 9.3 % (3.8-10.2); PLATELET COUNT 416 K/MM3 (134-434); RBC 5.03 M/mm3 (4.00-5.60); RDW 14.6 % (11.9-15.9); WHITE BLOOD COUNT 8.4 K/mm3 (4.0-10.8)
[2018-06-14] MEDS ORDERED: LISINOPRIL 10 MG TABLET (FP) PO ONE (14:19)
[2018-06-14] MEDS ORDERED: PT OWN MED DRAWER 7, Y5N ONE (20:22)
--- NOTE | 2018-06-15 08:40 | PN ---
Physical Exam: SUBJECTIVE: Patient seen and examined. Feels that his legs are improving. No fevers/chills. OBJECTIVE: Unable to obtain IV access or labs (attempted by me as well as anesthesia). Vital Signs Period Temp Pulse Resp BP Sys/Trent Pulse Ox Last 24 Hr 98.4 F-98.5 F 81-90 18-19 156-175/73-76 99-100 GENERAL: The patient is awake, alert, and fully oriented, in no acute distress. HEAD: Normal with no signs of trauma. EYES: PERRL, extraocular movements intact, sclera anicteric, conjunctiva clear. No ptosis. ENT: Ears normal, nares patent, oropharynx clear without exudates, moist mucous membranes. NECK: Trachea midline, full range of motion, supple. LUNGS: Breath sounds equal, clear to auscultation bilaterally, no wheezes, no crackles, no accessory muscle use. HEART: Regular rate and rhythm, S1, S2 without murmur, rub or gallop. ABDOMEN: Soft, nontender, nondistended, normoactive bowel sounds, no guarding, no rebound, no hepatosplenomegaly, no masses. EXTREMITIES: 2+ pulses, warm, well-perfused, +4 pitting lower extremity edema bilaterally with cobblestoning, R>L, no weeping, moderate erythema. NEUROLOGICAL: Cranial nerves II through XII grossly intact. Normal speech, gait not observed. PSYCH: Normal mood, normal affect. SKIN: Warm, dry, normal turgor. Laboratory Results - last 24 hr 06/14/18 06/14/18 06/14/18 10:10 10:10 10:10 WBC 8.4 RBC 5.03 Hgb 13.3 Hct 40.9 MCV 81.3 MCH 26.5 MCHC 32.5 RDW 14.6 Plt Count 416 D MPV 9.3 Absolute Neuts (auto) 5.6 Neutrophils % 66.0 Lymphocytes % 19.4 Monocytes % 9.3 Eosinophils % 4.8 H Basophils % 0.5 Sodium 135 L Potassium 4.0 Chloride 100 Carbon Dioxide 26 Anion Gap 9 BUN 10 Creatinine 0.9 Creat Clearance w eGFR > 60 Random Glucose 101 Calcium 9.4 Phosphorus 3.8 Magnesium 2.3 Vancomycin Pre-Dose 8.02 D Active Medications Generic Name Dose Route Start Last Admin Trade Name Freq PRN Reason Stop Dose Admin Enoxaparin Sodium 40 mg 06/11/18 10:00 06/14/18 10:21 Lovenox - SQ 40 mg DAILY [facility] Administration Famotidine 20 mg 06/12/18 22:00 06/14/18 21:34 Pepcid - PO 20 mg BID [facility] Administration Ceftriaxone Sodium 1 gm in 50 mls @ 100 mls/hr 06/11/18 10:00 06/14/18 10:21 Rocephin 1gm Ivpb (Pre-Docked) IVPB 100 mls/hr DAILY [facility] Administration Protocol Vancomycin HCl 1,500 mg/ 500 mls @ 250 mls/hr 06/13/18 11:00 06/14/18 12:00 Dextrose IVPB 250 mls/hr Q12H [facility] Administration Protocol Lactobacillus Acidophilus 1 tab 06/13/18 10:00 06/14/18 10:21 Bacid - PO 1 tab DAILY [facility] Administration Lisinopril 20 mg 06/15/18 10:00 Prinivil PO DAILY [facility] Multi-Ingredient Lotion 1 applic 06/11/18 13:10 Eucerin (Large Jar) - TP BID PRN DRY SKIN EKG: Normal sinus rhythm vent rate 100, QTC 472 incomplete RBBB No acute ST/T wave changes Radiology Reports Vascular US, B/L LE Impression: Limited examination, as described above. Nonvisualization of the right and left posterior tibial vein, no definite visualization of the left deep femoral vein and color Doppler flow only seen in the right popliteal vein without compression views obtained. Otherwise, there is no evidence of deep venous thrombosis in visualized portion of the right and left lower extremity deep venous system. Correlate clinically and close follow-up lower extremity duplex ultrasound would be helpful for further evaluation. Reported By: Andrey Andino MD 06/10/18 1528 Chest PA/Lat Impression: Prominent central markings. No sign of infiltrate or peripheral failure Reported By: Jesus Stephenson MD 06/10/18 4501 ASSESSMENT/PLAN: 1) ID Chronic lymphedema complicated by cellulitis -Transition to Bactrim DS 1 tab bid, Keflex 500mg q6h with plan to dc 06/16 on 7 more days of abx -Refer to Wound Center on dc 2) Cardiovascular HTN -Remains slightly above goal; Lisinopril increased to 20mg 06/14 -Recommend followup in 1 week for labs while on Lisinopril + Bactrim 3) Ppx -Lovenox -Ambulation Dispo: Observe on PO abx, likely dc 06/16 with Wound Center followup, should have labs while on Bactrim/Lisinopril Visit type - Emergency Visit Emergency Visit: Yes ED Registration Date: 06/12/18 Care time: The patient presented to the Emergency Department on the above date and was hospitalized for further evaluation of their emergent condition. - New Patient This patient is new to me today: Yes Date on this admission: 06/15/18 - Critical Care Critical Care patient: No - Discharge Referral Physician Referral: Munir Carrasco DO ([facility])
[2018-06-15] MEDS: ENOXAPARIN NA (PORCINE) 40 MG/0.4 ML DISP.SYRIN SQ SCH (09:58)
[2018-06-15] MEDS: LACTOBACILLUS ACIDOPHILUS 1 TABLET PO SCH (09:59)
[2018-06-15] MEDS: FAMOTIDINE 20 MG TABLET PO SCH ×2 (09:59→21:57)
[2018-06-15] MEDS: MINERAL OIL/PETROLAT/WATER TOPICAL CREAM 454 GM JAR TP PRN (09:59)
[2018-06-15] MEDS ORDERED: LISINOPRIL 20 MG TABLET (FP) PO SCH (10:00)
--- NOTE | 2018-06-15 12:21 | PN ---
Progress Note, Physician History of Present Illness: OOB in chair Less leg pain No fever/ chills Tolerating antibiotics without adverse rxn - Current Medication List Current Medications: Active Medications Cephalexin HCl (Keflex -) 500 mg PO Q6HPO [facility] Enoxaparin Sodium (Lovenox -) 40 mg SQ DAILY [facility] Last Admin: 06/15/18 09:58 Dose: 40 mg Famotidine (Pepcid -) 20 mg PO BID [facility] Last Admin: 06/15/18 09:59 Dose: 20 mg Lactobacillus Acidophilus (Bacid -) 1 tab PO DAILY [facility] Last Admin: 06/15/18 09:59 Dose: 1 tab Lisinopril (Prinivil) 20 mg PO DAILY [facility] Last Admin: 06/15/18 09:59 Dose: 20 mg Multi-Ingredient Lotion (Eucerin (Large Jar) -) 1 applic TP BID PRN PRN Reason: DRY SKIN Last Admin: 06/15/18 09:59 Dose: 1 applic Trimethoprim/Sulfamethoxazole (Bactrim Ds -) 1 each PO BID [facility] - Objective Vital Signs: Vital Signs Temperature 98.4 F 06/15/18 05:36 Pulse Rate 81 06/15/18 05:36 Respiratory Rate 19 06/15/18 05:36 Blood Pressure 156/76 06/15/18 05:36 O2 Sat by Pulse Oximetry (%) 100 06/15/18 05:36 Constitutional: Yes: Obese Cardiovascular: Yes: Regular Rate and Rhythm, S1, S2 Respiratory: Yes: CTA Bilaterally Gastrointestinal: Yes: Normal Bowel Sounds, Soft. No: Tenderness Extremities: Yes: Other (decreased erythema LE bilaterally) Labs: CBC, BMP 06/14/18 10:10 06/14/18 10:10 INR, PTT INR 1.15 (0.82-1.09) 06/10/18 15:09 Assessment/Plan Recurrent cellulitis LE Chronic lymphedema Morbid obesity May substitute oral antibiotic therapy Bactrim DS po bid + keflex 500mg po qid x 7d
[2018-06-15] MEDS: SULFAMETHOXAZOLE/TRIMETHOPRIM 800MG/160MG D.S. TABLET PO SCH ×2 (13:18→21:57)
[2018-06-15] MEDS: CEPHALEXIN MONOHYDRATE 500 MG CAPSULE (UD) PO SCH (17:52)
[2018-06-15] MEDS ORDERED: CEPHALEXIN MONOHYDRATE 500 MG CAPSULE (UD) PO SCH (18:00)
[2018-06-16] MEDS: CEPHALEXIN MONOHYDRATE 500 MG CAPSULE (UD) PO SCH ×2 (00:01→05:59)
[2018-06-16 07:09] VITALS: BP 149/73; PULSE 79; TEMP 97.5
--- NOTE | 2018-06-16 10:50 | DS ---
Physical Examination Vital Signs: Vital Signs Temperature 97.5 F L 06/16/18 06:00 Pulse Rate 79 06/16/18 06:00 Respiratory Rate 20 06/16/18 06:00 Blood Pressure 149/73 06/16/18 06:00 O2 Sat by Pulse Oximetry (%) 100 06/16/18 06:00 Findings/Remarks: General: NAD, A&Ox3 Lungs: CTA bilaterally Heart: RRR, S1S2 Abd: Soft, non-tender, non-distended Ext: +4 pitting lower extremity edema bilaterally with cobblestoning, R>L, + weeping, erythema Labs: CBC, BMP 06/14/18 10:10 06/14/18 10:10 Discharge Summary Reason For Visit: CELLULITIS OF LOWER EXTREMITY Current Active Problems Cellulitis of right lower leg (Acute) Hospital Course: This is a 32 year old morbidly obese male with a past medical history of cellulitis who presented to the ED with a one month history of increased swelling of B/L LE R>L. Plan: 1) ID Chronic lymphedema complicated by cellulitis - Discharge on Bactrim DS po bid and Keflex 500mg po qid x7 days - Follow-up with ID - Follow-up in the wound care center 2) Cardiovascular HTN - Continue Lisinopril - Recommend followup in 1 week for labs while on Lisinopril + Bactrim This discharge took 45 minutes to complete. Condition: Improved - Instructions Diet, Activity, Other Instructions: Please return to the ED with new, persistent, or worsening symptoms. Please follow-up with your providers as indicated. Please follow-up with Dr. Richards within 1 week for routine labs as you have just been started on Lisinopril. Antibiotics: Take all antibiotics for the duration that is on the instructions. Do NOT stop taking your antibiotics abruptly. 1) Bactrim DS 1 tablet twice a day for 7 days 2) Keflex 500mg four times a day for 7 days Referrals: Jarek Menon MD [Staff Physician] - (Please follow-up with Dr. Menon for a bariatric surgery consultation. ) Cornelius Hdez MD [Staff Physician] - (Please follow-up with Dr. Hdez ( infectious disease) within 1 week to assess your legs and assure your infection has resolved. ) Munir Carrasco MD [Staff Physician] - (Please follow-up at the wound care center within 2-3 days. ) Disposition: HOME - Home Medications Comprehensive Discharge Medication List: Ambulatory Orders Loratadine [Claritin] 10 mg PO PRN PRN 06/10/18 Oxycodone HCl/Acetaminophen [Percocet 5-325 mg Tablet] 1 tab PO Q6H PRN #10 tablet MDD 4 06/10/18 Cephalexin Monohydrate [Keflex -] 500 mg PO Q6HPO #28 capsule 06/16/18 Lactobacillus Acidophilus [Bacid -] 1 tab PO DAILY #14 tab 06/16/18 Lisinopril [Prinivil] 20 mg PO DAILY #30 tablet 06/16/18 Mineral Oil/Petrolat,Wht/Water [Eucerin (Large Jar) -] 1 applic TP BID PRN #1 jar 06/16/18 Sulfamethoxazole/Trimethoprim [Bactrim DS -] 1 each PO BID #14 tablet 06/16/18 This patient is new to me today: Yes Date on this admission: 06/16/18 Emergency Visit: Yes ED Registration Date: 06/12/18 Care time: The patient presented to the Emergency Department on the above date and was hospitalized for further evaluation of their emergent condition. Critical Care patient: No - Discharge Referral Referred to [facility] Med P.C.: No Physician Referral: Munir Carrasco DO ([facility])
== END 2018-06-16 12:00 | disposition home or self-care (01) | DRG 383 ==
LOC: FER 12:20 → UNDOADMIN 17:02 → FM/S 17:02 → INTOOBSV 18:14 → OBSVTOIN 06-12 14:35 → FM/S 06-12 18:23
PROVIDERS: ADMIT Internal Medicine; ATTEND Registered Nurse
DX: L03.115 Cellulitis of right lower limb (principal); L03.116 Cellulitis of left lower limb; I10 Essential (primary) hypertension; I87.8 Other specified disorders of veins; I89.0 Lymphedema, not elsewhere classified; E66.01 Morbid (severe) obesity due to excess calories; Z68.43 Body mass index [BMI] 50.0-59.9, adult; I45.10 Unspecified right bundle-branch block; Z87.891 Personal history of nicotine dependence
CPT/HCPCS: 36415; 71046-TC-FY; 80048; 80053; 81003; 81015; 83036; 83735; 84100; 84439; 84443; 85025; 85610; 85730; 87040; 93005; 93970-TC; 97116-GP; 97161-GP; 99281-25; G0378; G0480